=== PATIENT | male | born 1955 | race Caucasian/White ===

== ENCOUNTER 2019-10-31 13:25 | Inpatient (IN) ==
[2019-10-31 14:04] LABS: Hematocrit (blood only) 49.8 % (42-52); Hemoglobin 16.7 g/dL (14.0-18.0); Mean Corpuscular Hemoglobin 32.2 pg (25-34); Mean Corpuscular Hgb Conc 33.5 g/dL (32-36); Mean Platelet Volume 9.3 fL (7.4-10.4); Platelet Count 355 K/uL (130-400); RDW Coefficient of Variation 13.3 % (11.5-14.5); RDW Standard Deviation 46.2 fL (36.4-46.3); Red Blood Count 5.19 M/uL (4.7-6.1); White Blood Count 11.87 K/uL (4.8-10.8)
[2019-10-31 14:08] LABS: Blood Urea Nitrogen 8 mg/dl (7-18); Carbon Dioxide 22 mmol/L (21-32); Chloride 101 mmol/L (98-107); Est GFR (African American) 71.7; Est GFR (Non-African American) 61.8; Potassium 3.9 mmol/L (3.5-5.1); Sodium 135 mmol/L (136-145)
[2019-10-31 14:09] LABS: Alanine Aminotransferase 27 U/L (12-78); Albumin Level 3.6 gm/dl (3.4-5.0); Aspartate Aminotransferase 21 U/L (15-37); BUN Creatinine Ratio 6.8 (10-20); Calcium 9.2 mg/dl (8.5-10.1); Creatinine Clr Calc Pharmacy 85.6 ml/min; Glucose 164 mg/dl (70-99); Magnesium 2.1 mg/dl (1.8-2.4)
[2019-10-31 14:13] LABS: D Dimer 550 ug/L FEU (0-500)
[2019-10-31 14:19] LABS: Albumin Globulin Ratio 0.7 (0.9-2); Alkaline Phosphatase 73 U/L (45-117); Bilirubin,Total 0.6 mg/dl (0.2-1); Creatine Kinase 60 U/L (39-308); Globulin 4.8 gm/dl (2.5-4.0); Total Protein 8.4 gm/dl (6.4-8.2); Troponin I < 0.015 ng/ml (0-0.045)
--- NOTE | 2019-10-31 14:20 | CT Scan Report ---
CT head/brain wo con CLINICAL HISTORY: 64 years-old Male with syncope. Acute syncope TECHNIQUE: Multiple axial CT images of the head were obtained without contrast. A dose lowering tech nique was utilized adhering to the principles of ALARA. CT DOSE: 537.48 mGy.cm COMPARISON: None. FINDINGS: No acute intracranial hemorrhage, midline shift, intracranial mass, hydrocephalus, territorial ischem ia or abnormal extra-axial collection. Mild age-related involutional changes. Minimal scattered white matter hypodensities suggest chronic microvascular ischemic disease. Cerebral vascular calcification s. The calvarium is intact. The paranasal sinuses, mastoid air cells, and middle ear cavities are clear . IMPRESSION: No acute intracranial abnormality or calvarial fracture. ACT 112: Negative or not required by law. The above report was generated using voice recognition software. It may contain grammatical, syntax o r spelling errors. Electronically signed by: Brad Ng M.D. 10/31/2019 2:19 PM
[2019-10-31] MEDS ORDERED: SODIUM CHLORIDE 0.9% 1000ML 1,000 ML IV STA (14:26)
[2019-10-31] MEDS ORDERED: SODIUM CHLORIDE 0.9% 1000ML 500 ML IV ONE (14:26)
--- NOTE | 2019-10-31 14:26 | Emergency Department Note ---
Impression & Plan Syncope, Hypertension ED Provider Note NAME: ALEENA CABRERA AGE: 64 SEX: M ARRIVES VIA: Walk-In INFORMANT: [Patient] ED PROVIDER(S): Ramu Matthew MD CHIEF COMPLAINT: Syncope PLAN: Disposition: Admitted Condition: [Good] MEDICAL DECISION MAKING: Patient presented with a syncopal episode. He was rather abrupt in onset. He notes a mildly productive cough. He is a heavy smoker. The patient had an unremarkable CBC and chemistry panel. His d-dimer was mildly elevated. Chest x-ray was concerning for an abnormal hilum on the right. CT imaging of the chest was performed. This was concerning for possible metastatic spread of a right hilar mass. This is concerning for malignancy. I did discuss this with the patient. There is also some findings concerning for postobstructive changes. The patient had blood cultures done. He was given Rocephin and doxycycline. [facility] The patient was evaluated in the ER for further management. Triage Nursing notes reviewed and agree them. [Additional history obtained from] EMS Vital Signs: reviewed and remarkable for hypertension Differential diagnosis: Vasovagal event, dehydration, infection, hypoglycemia, electrolyte a bnormalities, cardiac sources, intracerebral event, pulmonary embolism, seizure, toxicologic, neurologic, as well as other pathologies. ER treatment provided: Saline hydration Diagnostics interpreted by me: ECG:Rate: 94 Rhythm:Normal sinus [place]:Normal QRS:Normal ST segements:No elevation or depression Other:No PACs or PVCs Cardiac Monitoring: Cardiac monitoring ordered by me: The patient was placed on continuous cardiac monitoring and observed. It revealed a normal sinus rhythm at 98 beats per minute without ectopy or evidence of dysrhythmia. Laboratory studies: [See below] unremarkable CBC and chemistry panel. Negative troponin. Elevated d-dimer. Imaging studies: Chest x-ray abnormal right hilum. CT scan did not reveal any obvious pulmonary emboli. Concerning findings for lung cancer noted. I refer you to the EMR for further details. CT scan of the head was negative for acute process. [facility] Discussed with Lauren rebolledo NP. Patient will be admitted by Dr. Benitez. HPI: The patient is a 64 year old male who presents to the Emergency Room with complaints of syncope. This started prior to arrival and is resolved. The patient also notes the following associated symptoms, none. The patient has been given no medication for relieving factors. Current pain is rated as 0/10. Patient states that he was sitting at the kitchen table. He got up to walk into the next room and had a very abrupt syncopal episode. No prior history of the same. Patient denies any injury. He denies any pain. He felt no palpitations prior to. The patient has not had any sick contacts. He has been self isolating at home. No known fu virus contacts. He has not seen a doctor in several decades. Pt denies headache, fevers, chills, diaphoresis, visual changes, neck pain, chest pain, breathing difficulties, nausea, vomiting, abdominal pain, back pain, melena, hematochezia, urinary symptoms, numbness, weakness, lymphadenopathy, rash, or other complaints. ROS: See above HPI for pertinent positives & negatives. A total of [10] systems reviewed and were otherwise negative. PAST MEDICAL HISTORY:[See Below] patient denies PAST SURGICAL HISTORY:[See Below]patient denies FAMILY HISTORY:[See Below] SOCIAL HISTORY:[See Below] smoker HOME MEDICATIONS:[See Below] ALLERGIES:[See Below] VITALS:[See Below] PHYSICAL EXAMINATION: GENERAL: Awake, alert, well-appearing, in no distress HENT: Normocephalic, atraumatic. Oropharynx unremarkable. EYES: Normal conjunctiva. Sclera non-icteric. NECK: Inspection normal. Non-tender. Supple. No nuchal rigidity. FROM. No masses. RESPIRATORY: Clear to auscultation. No wheezes. No rales. Normal respiratory effort. CARDIAC: Normal rate. Normal rhythm. No murmurs. No rubs. Extremities warm and well perfused. Pulses equal. No JVD. GI: Soft, non-distended. No tenderness to palpation. No rebound or guarding. No masses. RECTAL: Deferred. MUSCULOSKELETAL: Atraumatic. Chest examination reveals no tenderness. The back is symmetrical on inspection without obvious abnormality. There is no CVA tenderness to palpation. No joint edema. LOWER EXTREMITIES: Calves are equal size bilaterally and non-tender. No edema. No discoloration. NEURO: Normal sensorium. No sensory or motor deficits noted. Speech normal. Cranial nerves II through XII intact. SKIN: No rash or jaundice noted. 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 Beliefs That Will Affect Care: None Current Living Situation: Alone Other Information That Helps Us Care for You: No Feels Safe at Home: Yes Safety Concerns: Feels Safe At This Time Smoking Status: Current every day smoker Tobacco Type: cigarettes ; Cigarettes Per Day: 10 ; Do You Dip or Chew Tobacco: No ; Second Hand Exposure: No ; Tobacco Cessation Education Requested by Patient: No Hx Alcohol Use: Yes Alcohol type: beer Alcohol Intake Frequency: Rarely Hx Substance Use: No Allergies Allergies Allergy/AdvReac Type Severity Reaction Status Date / Time No Known Allergies Allergy Unverified 10/31/19 14:54 Home Meds Home Medications Medication Instructions Recorded Confirmed No Known Home Medications 10/31/19 10/31/19 Results & Data (ED) Vital Signs Vital Signs - 24 hr 10/31/19 13:31 10/31/19 13:35 10/31/19 13:36 Temperature 36.7 C Temperature Source Oral Pulse Rate - Lying Pulse Rate - Sitting Pulse Rate - Standing Pulse Rate 95 H 94 H 97 H Pulse Rate from SpO2 Sensor 95 H 95 H Respiratory Rate 20 22 20 Respiratory Effort / Characteristics Non-Labored Spontaneous Respiratory Depth Normal Respiratory Pattern Regular Blood Pressure - Lying Blood Pressure - Sitting Blood Pressure- Standing Blood Pressure 184/99 H 184/99 H Blood Pressure Mean 120 127 Pulse Oximetry 96 96 95 Oxygen Delivery Method Room Air Sepsis Recent Fever Within 48 Hours No Sepsis Action Taken by Nursing No Action Required 10/31/19 14:08 10/31/19 14:09 10/31/19 14:10 Temperature Temperature Source Pulse Rate - Lying 98 H Pulse Rate - Sitting 97 H Pulse Rate - Standing 102 H Pulse Rate 99 H 101 H 103 H Pulse Rate from SpO2 Sensor Respiratory Rate 20 21 Respiratory Effort / Characteristics Respiratory Depth Respiratory Pattern Blood Pressure - Lying 164/115 H Blood Pressure - Sitting 159/80 H Blood Pressure- Standing 148/107 H Blood Pressure 164/115 H 159/80 H Blood Pressure Mean 124 95 Pulse Oximetry Oxygen Delivery Method Sepsis Recent Fever Within 48 Hours Sepsis Action Taken by Nursing 10/31/19 14:11 10/31/19 14:12 10/31/19 14:30 Temperature Temperature Source Pulse Rate - Lying Pulse Rate - Sitting Pulse Rate - Standing Pulse Rate 101 H 97 H Pulse Rate from SpO2 Sensor Respiratory Rate 21 20 Respiratory Effort / Characteristics Respiratory Depth Respiratory Pattern Blood Pressure - Lying Blood Pressure - Sitting Blood Pressure- Standing Blood Pressure 148/107 H 145/81 H Blood Pressure Mean 126 113 Pulse Oximetry Oxygen Delivery Method Sepsis Recent Fever Within 48 Hours Sepsis Action Taken by Nursing 10/31/19 14:42 10/31/19 15:00 10/31/19 15:01 Temperature Temperature Source Pulse Rate - Lying Pulse Rate - Sitting Pulse Rate - Standing Pulse Rate 94 H 86 89 Pulse Rate from SpO2 Sensor 95 H 86 86 Respiratory Rate 20 16 17 Respiratory Effort / Characteristics Respiratory Depth Respiratory Pattern Blood Pressure - Lying Blood Pressure - Sitting Blood Pressure- Standing Blood Pressure 155/81 H Blood Pressure Mean 104 Pulse Oximetry 96 97 95 Oxygen Delivery Method Sepsis Recent Fever Within 48 Hours Sepsis Action Taken by Nursing 10/31/19 15:30 10/31/19 15:31 10/31/19 16:00 Temperature Temperature Source Pulse Rate - Lying Pulse Rate - Sitting Pulse Rate - Standing Pulse Rate 90 92 H 92 H Pulse Rate from SpO2 Sensor 91 H 89 101 H Respiratory Rate 20 19 Respiratory Effort / Characteristics Respiratory Depth Respiratory Pattern Blood Pressure - Lying Blood Pressure - Sitting Blood Pressure- Standing Blood Pressure 124/90 Blood Pressure Mean 107 Pulse Oximetry 97 94 92 Oxygen Delivery Method Sepsis Recent Fever Within 48 Hours Sepsis Action Taken by Nursing 10/31/19 16:01 10/31/19 16:30 Temperature Temperature Source Pulse Rate - Lying Pulse Rate - Sitting Pulse Rate - Standing Pulse Rate 96 H 91 H Pulse Rate from SpO2 Sensor 97 H 92 H Respiratory Rate 18 20 Respiratory Effort / Characteristics Respiratory Depth Respiratory Pattern Blood Pressure - Lying Blood Pressure - Sitting Blood Pressure- Standing Blood Pressure 196/93 H 172/107 H Blood Pressure Mean 132 131 Pulse Oximetry 93 97 Oxygen Delivery Method Sepsis Recent Fever Within 48 Hours Sepsis Action Taken by Nursing Laboratory Data Result diagrams: 10/31/19 13:02 10/31/19 13:02 Lab Results 10/31/19 10/31/19 10/31/19 Range/Units 13:02 13:02 13:02 WBC 11.87 H (4.8-10.8) K/uL RBC 5.19 (4.7-6.1) M/uL Hgb 16.7 (14.0-18.0) g/dL Hct 49.8 (42-52) % MCV 96.0 (80-100) fL MCH 32.2 (25-34) pg MCHC 33.5 (32-36) g/dL RDW Std Deviation 46.2 (36.4-46.3) fL RDW Coeff of [place] 13.3 (11.5-14.5) % Plt Count 355 (130-400) K/uL MPV 9.3 (7.4-10.4) fL Immature Gran % (Auto) 0.3 % Neut % (Auto) 40.8 % Lymph % (Auto) 44.4 % [place] % (Auto) 9.6 % Eos % (Auto) 4.2 % Baso % (Auto) 0.7 % Immature Gran # (Auto) 0.03 H (0.00-0.02) K/uL Neut # (Auto) 4.85 (1.4-6.5) K/uL Lymph # (Auto) 5.27 H (1.2-3.4) K/uL [place] # (Auto) 1.14 H (0.11-0.59) K/uL Eos # (Auto) 0.50 (0-0.5) K/uL Baso # (Auto) 0.08 (0-0.2) K/uL RBC Morphology Unremarkable D-Dimer 550 H* (0-500) ug/L FEU Sodium 135 L (136-145) mmol/L Potassium 3.9 (3.5-5.1) mmol/L Chloride 101 (98-107) mmol/L Carbon Dioxide 22 (21-32) mmol/L Anion Gap 12.0 H (3-11) BUN 8 (7-18) mg/dl Creatinine 1.22 (0.6-1.4) mg/dl Est Cr Clr Drug Dosing 85.6 ml/min Est GFR ( Amer) 71.7 Est GFR (Non-Af Amer) 61.8 BUN/Creatinine Ratio 6.8 L (10-20) Glucose 164 H (70-99) mg/dl Calcium 9.2 (8.5-10.1) mg/dl Magnesium 2.1 (1.8-2.4) mg/dl Total Bilirubin 0.6 (0.2-1) mg/dl AST 21 (15-37) U/L ALT 27 (12-78) U/L Alkaline Phosphatase 73 (45-117) U/L Total Creatine Kinase 60 (39-308) U/L Troponin I < 0.015 (0-0.045) ng/ml Total Protein 8.4 H (6.4-8.2) gm/dl Albumin 3.6 (3.4-5.0) gm/dl Globulin 4.8 H (2.5-4.0) gm/dl Albumin/Globulin Ratio 0.7 L (0.9-2) TSH 3.720 (0.300-4.500) uIu/ml Administered Medications Sodium Chloride (Nss 1000ml) 1,000 mls @ 125 mls/hr IV .Q8H STA Stop: 10/31/19 22:25 Last Infusion: 10/31/19 20:09 Dose: 0 mls/hr Documented by: [id number] Admin: 10/31/19 14:45 Dose: 125 mls/hr Documented by: [id number] Discontinued Medications Sodium Chloride (Nss 1000ml) 500 mls @ 999 mls/hr IV .Q31M ONE Stop: 10/31/19 14:56 Last Infusion: 10/31/19 15:40 Dose: 0 mls/hr Documented by: [id number] Admin: 10/31/19 14:45 Dose: 999 mls/hr Documented by: [id number] Ceftriaxone Sodium (Rocephin) 2,000 mg in 70 mls @ 140 mls/hr IV NOW STA Stop: 10/31/19 16:15 Last Infusion: 10/31/19 17:15 Dose: 0 mls/hr Documented by: [id number] Admin: 10/31/19 16:28 Dose: 140 mls/hr Documented by: [id number] Doxycycline Hyclate 100 mg/ (Dextrose) 110 mls @ 50 mls/hr IV NOW STA Stop: 10/31/19 17:57 Last Infusion: 10/31/19 20:08 Dose: 0 mls/hr Documented by: [id number] Admin: 10/31/19 17:15 Dose: 50 mls/hr Documented by: [id number] Ioversol (Optiray 320 125ml) 120 ml IV ONCE PRN PRN Reason: Interaction Checking Stop: 11/04/19 14:35 Last Admin: 10/31/19 14:38 Dose: 120 ml Documented by: [id number] Discharge Plan Visit Data *Final* Discharge Date/Time: 10/31/19 17:03 Chief Complaint: Syncope Stated Complaint: ALOC ED Provider: Ramu Matthew Discharge Problem: Syncope, Hypertension Patient Disposition: Admitted As Inpatient Discharge Instructions Interventions: ED Discharge Assessment Last Done: 10/31/19 17:03
[2019-10-31 14:35] LABS: Basophils # (auto) 0.08 K/uL (0-0.2); Basophils % (auto) 0.7 %; Eosinophils % (auto) 4.2 %; Immature Granulocytes # (auto) 0.03 K/uL (0.00-0.02); Immature Granulocytes % (auto) 0.3 %; Lymphocytes # (auto) 5.27 K/uL (1.2-3.4); Lymphocytes % (auto) 44.4 %; Monocytes # (auto) 1.14 K/uL (0.11-0.59); Monocytes % (auto) 9.6 %; Neutrophils # (auto) 4.85 K/uL (1.4-6.5); Neutrophils % (auto) 40.8 %; RBC Morphology Unremarkable
[2019-10-31] MEDS ORDERED: OPTIRAY 320 125ml IV PRN (14:36)
--- NOTE | 2019-10-31 15:07 | XRay Report ---
XR chest 1V portable HISTORY: syncope COMPARISON: None. FINDINGS: No pneumothorax. No pleural effusion. The heart is normal in size. The left lung is clear. Abnormal fullness and increased density within the right hilum. Small patchy density within the perip geraldo the right lung base. IMPRESSION: 1. Increased density and abnormal fullness within the right hilum. This could represent a right hilar mass. Dedicated CT is recommended for further evaluation. 2. Small patchy density within the base of the right lower lobe which may represent atelectasis or pn eumonia. ACT 112: Negative or not required by law. Electronically signed by: Lino Richey M.D. 10/31/2019 3:06 PM
--- NOTE | 2019-10-31 15:08 | CT Scan Report ---
CT angio chest PE protocol CT DOSE: 741.03 mGy.cm HISTORY: 64 years-old Male with syncope, +dimer. Acute syncope with elevated d-dimer level TECHNIQUE: Multiple CTA images of the chest were obtained after the intravenous administration of 120 ml Optiray 320. Coronal and sagittal MIPS were obtained from the axial data set and were submitted for review. All measurements were obtained according to NASCET criteria. A dose lowering technique w as utilized adhering to the principles of ALARA. COMPARISON: Chest radiograph of same day FINDINGS: CTA: Heart is normal in size. There is no pericardial effusion. Moderate coronary artery calcifications. N o thoracic aortic aneurysm or dissection. Moderate to extensive calcified plaque of the thoracic aort a. Patency of the imaged great vessels. The pulmonary arterial tree is suboptimally evaluated seconda ry to contrast bolus timing and respiratory motion. No definite pulmonary emboli identified. There is narrowing of the distal right pulmonary artery and proximal lobar branches secondary to a right jessica r mass/adenopathy as described below. There is decreased opacification of the subsegmental branches o f the right lung compared the left is likely secondary to shunting. CT CHEST: Unremarkable thyroid. There are multiple enlarged paratracheal, prevascular, subcarinal and right hil ar lymph nodes. A right tracheoesophageal recess lymph node on image 245 measures 2.5 x 1.7 cm. Subca rinal adenopathy measures up to 2.9 x 1.8 cm. Right hilar mass/conglomerate pathologic adenopathy whi ch is confluent with the subcarinal adenopathy measures approximately 5.8 x 5.4 x 4.7 cm in transvers e, AP and craniocaudal dimensions respectively. There is encasement of the pulmonary arteries and vei ns with encasement of the bronchus intermedius, right lower lobe bronchus and tracks along the lobar and segmental branches of the right middle and lower lobes. There is mild narrowing of the bronchus i ntermedius. Scattered nodular consolidative opacities are noted within a bronchovascular distribution within the right middle and lower lobes with individual nodules measuring up to approximately 6 mm. Mild emphysema. There is an irregular 1.9 x 1.6 cm calcified structure of the subpleural left lower l obe on image 135 series 4. Mild bilateral bronchial wall thickening. Respiratory motion artifact limi ts evaluation of the lung parenchyma. Mild nonspecific thickening of the bilateral adrenal glands. Hepatic steatosis. Gynecomastia. Degener ative changes of the shoulders and spine. No suspicious osseous lesions. IMPRESSION: 1. Limited exam secondary to respiratory motion. 2. Infiltrative right hilar mass measures 5.8 x 5.4 x 4.7 cm suggestive of primary bronchogenic carci noma and encases the adjacent pulmonary arteries and veins, bronchus intermedius and proximal lobar a nd segmental bronchi of the right middle and lower lobes. Adjacent subsegmental consolidative and nod ular opacities of the right lower and middle lobes suggest postobstructive pneumonitis with satellite metastasis also in the differential. 3. 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 4. No evidence of pulmonary thromboembolic disease. 5. Mild emphysema. 6. Hepatic steatosis. ACT 112: Negative or not required by law. The above report was generated using voice recognition software. It may contain grammatical, syntax o r spelling errors. Electronically signed by: Brad Ng M.D. 10/31/2019 3:07 PM
--- NOTE | 2019-10-31 15:36 | Electrocardiogram Report ---
Test Reason : Blood Pressure : / mmHG Vent. Rate : 094 BPM Atrial Rate : 094 BPM P-R Int : 138 ms QRS Dur : 086 ms QT Int : 368 ms P-R-T Axes : 064 039 051 degrees QTc Int : 460 ms Normal sinus rhythm Normal ECG No previous ECGs available Confirmed by Cali Castañeda ([id number]) on 10/31/2019 3:35:57 PM Referred By: Confirmed By:Cali Castañeda
[2019-10-31] MEDS ORDERED: DOXYCYCLINE HYCLATE 100 MG in DEXTROSE 5% 100 ML IV STA (15:46)
[2019-10-31] MEDS ORDERED: cefTRIAXone SODIUM 2,000 MG/70 ML BAG IV STA (15:46)
--- NOTE | 2019-10-31 17:12 | History & Physical Report ---
Date of Service October 31, 2019 Assessment & Plan (1) Syncope: -Admit to telemetry -Patient presenting from home after a syncopal event -In the ED, vitals are stable and head CT is negative for acute findings. Chest CTA negative for PE however does show right lung mass which will be described b danielow. -Initial troponin negative, EKG without acute ST changes -Continue to cycle cardiac enzymes, check resting echo -Orthostatic BPs (2) Mass of right lung: (3) Pneumonia: -CTA chest showing infiltrative right hilar mass measures 5.8 x 5.4 x 4.7 cm suggestive of primary bronchogenic carcinoma and encases the adjacent pulmonary arteries and veins, bronchus intermedius and proximal lobar and segmental bronchi of the right middle and lower lobes. Adjacent subsegmental consolidative and nodular opacities of the right lower and middle lobes suggest postobstructive pneumonitis with satellite metastasis also in the differential. -Saturating well on room air -Afebrile, WBC 11.8K -S/p IV ceftriaxone and doxycycline in the ED, will continue with -Pulmonary consult, case discussed with Dr. Freedman (4) Elevated blood pressure, situational: -Intermittently elevated BP readings in the ED, likely situational -Continue to monitor BP, providing antihypertensive if needed (5) DVT prophylaxis: -SCDs due to lung mass involving pulmonary arteries and veins /possible n eed for invasive procedure History of Present Illness Chief Complaint: Syncope Primary Care Provider: NO PCP 64-year-old male with no significant past medical history (has not seen a healthcare provider in ~50 years) who presents to the ED after syncopal event. Patient reports he was walking through his house to check on his wood burner when he noted that his eyes were tracing up the wall and then to the ceiling. He then subsequently fell to the floor losing consciousness. No associated tongue biting, vomiting, loss of bowel or bladder function. Patient was brought to the ED via EMS for further evaluation. Patient denies any associated chest pain or shortness of breath. Reports he otherwise has been feeling well recently. Patient reports a chronic cough that is productive for yellow sputum at times. Patient is a lifelong smoker. Denies fevers and chills. No abdominal pain, nausea, diarrhea. Denies any urinary symptoms. In the ED, patient is mildly hypertensive at times, otherwise hemodynamically stable. Labs are unremarkable. Head CT is negative for acute findings. CTA chest negative for PE however shows infiltrative right hilar mass measures 5.8 x 5.4 x 4.7 cm suggestive of primary bronchogenic carcinoma and encases the adjacent pulmonary arteries and veins, bronchus intermedius and proximal lobar and segmental bronchi of the right middle and lower lobes. Adjacent subsegmental consolidative and nodular opacities of the right lower and middle lobes suggest postobstructive pneumonitis with satellite metastasis also in the differential. Patient was given IV ceftriaxone, IV doxycycline, IVF. Allergies Allergy/AdvReac Type Severity Reaction Status Date / Time No Known Allergies Allergy Unverified 10/31/19 14:54 Home Medications Home Medications Medication Instructions Recorded Confirmed Type No Known Home Medications 10/31/19 10/31/19 History Past Med/Surg History Medical History No significant past medical history Surgical History No significant past surgical history Family History Mother Leukemia Father Heart disease Stroke Social History Preferred Language: Icelandic Feels Safe at Home: Yes Smoking Status: Current every day smoker Hx Alcohol Use: Yes Alcohol Intake Frequency: Rarely Review of Systems Review of Systems: ROS per HPI, all other systems reviewed and negative Physical Exam Constitutional: WD/WN, vitals as above Eyes: PERRL, conjunctivae normal, anicteric sclerae ENMT: external ear and nose normal, oropharynx normal Respiratory: normal respiratory effort; no respiratory distress Auscultation: + diminished lung sounds and + wheezes (Faint, expiratory, right base) Cardiovascular: Rate/Rhythm: regular rate and regular rhythm Vessels: normal peripheral pulses Extremities: + edema (Trace edema BLE) Gastrointestinal (Abdomen): normal bowel sounds, soft, nontender, no hepatosplenomegaly Inspection/Auscultation: + abdomen distended Musculoskeletal: no cyanosis or clubbing, extremities motor strength 5/5 Skin: no rashes, warm and dry Scattered areas of psoriasis Neurologic: PERRL, EOMI, accommodation nl, no face palsy, no dysarthria Psychiatric: A+Ox3, euthymic affect Results & Data Results & Data ([facility]) Vital Signs (Past 12 Hours) Vital Signs Temp Pulse Resp BP Pulse Ox 10/31/19 15:01 89 17 95 10/31/19 15:00 86 16 155/81 H 97 10/31/19 14:42 94 H 20 96 10/31/19 14:30 145/81 H 10/31/19 14:12 97 H 20 10/31/19 14:11 101 H 21 148/107 H 10/31/19 14:10 103 H 21 159/80 H 10/31/19 14:09 101 H 20 164/115 H 10/31/19 14:08 99 H 10/31/19 13:36 36.7 C 97 H 20 184/99 H 95 10/31/19 13:35 94 H 22 96 10/31/19 13:31 95 H 20 184/99 H 96 Laboratory Results Short CBC 10/31/19 Range/Units 13:02 WBC 11.87 H (4.8-10.8) K/uL Hgb 16.7 (14.0-18.0) g/dL Hct 49.8 (42-52) % Plt Count 355 (130-400) K/uL BMP 10/31/19 13:02 Sodium 135 L Potassium 3.9 Chloride 101 Carbon Dioxide 22 BUN 8 Creatinine 1.22 Glucose 164 H Calcium 9.2 Cardiac Enzymes 10/31/19 Range/Units 13:02 Total Creatine Kinase 60 (39-308) U/L Troponin I < 0.015 (0-0.045) ng/ml Liver Function 10/31/19 Range/Units 13:02 Total Bilirubin 0.6 (0.2-1) mg/dl AST 21 (15-37) U/L ALT 27 (12-78) U/L Alkaline Phosphatase 73 (45-117) U/L Albumin 3.6 (3.4-5.0) gm/dl Diagnostic Findings CXR IMPRESSION: 1. Increased density and abnormal fullness within the right hilum. This could represent a right hilar mass. Dedicated CT is recommended for further evaluation. 2. Small patchy density within the base of the right lower lobe which may represent atelectasis or pneumonia. HEAD CT IMPRESSION: No acute intracranial abnormality or calvarial fracture. CTA CHEST IMPRESSION: 1. Limited exam secondary to respiratory motion. 2. Infiltrative right hilar mass measures 5.8 x 5.4 x 4.7 cm suggestive of primary bronchogenic carcinoma and encases the adjacent pulmonary arteries and veins, bronchus intermedius and proximal lobar and segmental bronchi of the right middle and lower lobes. Adjacent subsegmental consolidative and nodular opacities of the right lower and middle lobes suggest postobstructive pneumonitis with satellite metastasis also in the differential. 3. Pathologic prevascular, paratracheal, right hilar and subcarinal adenopathy compatible with lymphatic metastasis. 4. No evidence of pulmonary thromboembolic disease. 5. Mild emphysema. 6. Hepatic steatosis. Code Status & VTE Plan Code Status Patient is a full code as per my discussion with him. VTE Prophylaxis Plan VTE Prophylaxis will be ordered: Yes Supervising Physician Co-Signing Physician Notes Physical Exam Gen-AAO x 3, NAD, Afebrile Head-NCAT, EOMI, PERRLA, Anicteric Sclera, No Posterior Pharyngeal Erythema Neck-Supple, No JVD, No Thyromegaly, No Masses, No LAD, No Bruits Lungs-Clear to Auscultation Bilaterally, No Rales, No Rhonchi, No Wheezing, No Crepitus Chest-No S4, +S1, +S2, No S3, No Murmurs, No Rubs, No Gallops, No Ectopy Abdomen-Soft, Bowel Sounds Present, Non Tender, Non Distended, No Hepatomegaly, No Splenomegaly, No Palpable Masses, No Rebound, No Rigidity, No Guarding Musculoskeletal-Full Range of Motion Bilaterally, No CVAT Extremities-No Cyanosis, No Clubbing, No Edema Nuero-Cranial Nerves II-XII grossly intact, Motor WNL, DTRs WNL, Strength WNL, Non Focal Psych-Normal Mood
[2019-10-31] MEDS ORDERED: ACETAMINOPHEN 325 MG TAB PO PRN (17:25)
[2019-10-31 18:28] LABS: Appearance Urine Clear (Clear); Bacteria Urine Automated Negative (Negative); Bilirubin Urine Negative (Negative); Blood Urine Trace (Negative); Color Urine Yellow; Epithelial Cell Urine Auto >30 /lpf (0-5); Glucose Urine UA Negative (Negative); Ketones Urine Negative (Negative); Leukocyte Esterase Urine 1+ (Negative); Nitrite Urine Negative (Negative); Protein Urine Negative (Negative); Specific Gravity Urine > 1.045 (1.000-1.030); Urobilinogen Urine Negative (Negative)
[2019-11-01 01:38] LABS: Hematocrit (blood only) 43.6 % (42-52); Hemoglobin 14.5 g/dL (14.0-18.0); Mean Corpuscular Hemoglobin 31.3 pg (25-34); Mean Corpuscular Hgb Conc 33.3 g/dL (32-36); Mean Corpuscular Volume 94.2 fL (80-100); Mean Platelet Volume 8.7 fL (7.4-10.4); Platelet Count 308 K/uL (130-400); RDW Coefficient of Variation 13.2 % (11.5-14.5); RDW Standard Deviation 45.5 fL (36.4-46.3); Red Blood Count 4.63 M/uL (4.7-6.1); White Blood Count 9.49 K/uL (4.8-10.8)
[2019-11-01 02:04] LABS: BUN Creatinine Ratio 11.1 (10-20); Calcium 8.2 mg/dl (8.5-10.1); Creatinine Clr Calc Pharmacy 76.9 ml/min; Est GFR (African American) 80.3; Est GFR (Non-African American) 69.3; Potassium 4.5 mmol/L (3.5-5.1)
[2019-11-01] MEDS: DOXYCYCLINE HYCLATE 100 MG in DEXTROSE 5% 100 ML IV SCH ×2 (05:14→17:31)
--- NOTE | 2019-11-01 07:32 | Hospitalist Progress Note ---
Date of Service November 01, 2019 Assessment & Plan (1) Syncope: -Patient presenting from home after a syncopal event -In the ED, vitals are stable and head CT is negative for acute findings. Chest CTA negative for PE however does show right lung mass. -Initial troponin negative, EKG without acute ST changes -Continue to cycle cardiac enzymes, check resting echo -Orthostatic BPs (2) Mass of right lung: (3) Pneumonia: -CTA chest showing infiltrative right hilar mass measures 5.8 x 5.4 x 4.7 cm suggestive of primary bronchogenic carcinoma and encases the adjacent pulmonary arteries and veins, bronchus intermedius and proximal lobar and segmental bronchi of the right middle and lower lobes. Adjacent subsegmental consolidative and nodular opacities of the right lower and middle lobes suggest postobstructive pneumonitis with satellite metastasis also in the differential. -Saturating well on room air -Afebrile, WBC 11.8K -S/p IV ceftriaxone and doxycycline in the ED, will continue with -Pulmonary consult, case discussed with Dr. Freedman (4) Elevated blood pressure, situational: -Intermittently elevated BP readings in the ED, likely situational -Continue to monitor BP, providing antihypertensive if needed (5) DVT prophylaxis: -SCDs due to lung mass involving pulmonary arteries and veins /possible need for invasive procedure Labs Checked ROS-No Headache, No Visual Changes, No Nausea, No Vomiting, No Fever, No Chills, No Neck Pain or Stiffness, No Chest Pain, No Palpitations, No SOB, No FISHMAN, No Cough, No Sputum, No Wheezing, No Abdominal Pain, No Diarrhea, No Hematemesis, No Hemoptysis, No Unexpected Weight Loss, No Flank pain, No Melena, No Hematochezia, No Frequency, No Urgency, No Burning, No Hematuria, No Rashes, No Diaphoresis. Appetite is Normal Physical Exam Gen-AAO x 3, NAD, Afebrile Head-NCAT, EOMI, PERRLA, Anicteric Sclera, No Posterior Pharyngeal Erythema Neck-Supple, No JVD, No Thyromegaly, No Masses, No LAD, No Bruits Lungs-Clear to Auscultation Bilaterally, No Rales, No Rhonchi, No Wheezing, No Crepitus Chest-No S4, +S1, +S2, No S3, No Murmurs, No Rubs, No Gallops, No Ectopy Abdomen-Soft, Bowel Sounds Present, Non Tender, Non Distended, No Hepatomegaly, No Splenomegaly, No Palpable Masses, No Rebound, No Rigidity, No Guarding Musculoskeletal-Full Range of Motion Bilaterally, No CVAT Extremities-No Cyanosis, No Clubbing, No Edema Nuero-Cranial Nerves II-XII grossly intact, Motor WNL, DTRs WNL, Strength WNL, Non Focal Psych-Normal Mood Admission and Anticipated Discharge Date Admission Date: October 31, 2019 Anticipated date of discharge: 11/02/19 Results & Data Results & Data ([facility]) Vital Signs (Past 12 Hours) Vital Signs Temp Pulse Resp BP Pulse Ox 11/01/19 04:00 36.7 C 95 H 18 114/88 95 10/31/19 23:53 37.2 C 87 18 130/71 91 10/31/19 19:35 37.1 C 84 18 163/77 H 94
--- NOTE | 2019-11-01 11:48 | Pulmonary Consultation ---
Date of Consultation November 01, 2019 Assessment & Plan (1) Mass of right lung: CT chest personally reviewed: Emphysematous changes appreciated. There is significant right hilar mass with significant mediastinal lymphadenopathy involving station 7, 4R and 2R. Patient also has granulomatous change appreciated in the left lower lobe. --Right hilar mass with mediastinal lymphadenopathy In a patient with greater than [id number] smoking history, the likelihood of malignancy is very high Patient denies any B symptoms Plan would be for bronchoscopy with EBUS to get tissue diagnosis. We will get MRI of the head to make sure there is no metastatic disease appreci ated there. Patient will need a PET/CT as an outpatient. We will schedule the EBUS to be done Sunday. N.p.o. post Sunday midnight. Risk and benefits of the procedure explained to the patient in depth. All questions and queries were answered and the best way possible. --COPD/emphysema We will start the patient on Anoro Patient is to follow-up with pulmonary as an outpatient to have pulmonary function test done --Active smoker Advised to quit Plan: MRI of the brain to rule out mets especially given patient had new onset syncope with questionable seizure-like activity. CT head was negative on the day of presentation. EBUS on Sunday. Recommend discontinuing antibiotics Start Anoro inhaler. Please note the above document was generated using voice recognition software. It may contain grammatical, syntax or spelling errors. (2) LAD (lymphadenopathy), mediastinal: (3) Mass of hilum: History of Present Illness Attending Physician: Dharmesh Benitez DO History of Present Illness 64-year-old male with past medical history of psoriasis not on any treatment presented to the hospital with an episode of syncope which was associated with urinary incontinence as per the patient along with shaking. Patient denies any dizziness, palpitation or diaphoresis prior to the episode. No tongue biting, no fecal incontinence. Patient never had any issues like this in the past. There is no personal or family history of seizure disorder. Pulmonary consult was placed when CTA was done to rule out PE which showed right hilar mass and significant mediastinal lymphadenopathy. Patient denies any shortness of breath, denies any chest pain, no weight loss, no night sweats. Patient does have cough which is usually in the morning with clear phlegm. Denies any hemoptysis. Denies any fever or chills. No dysuria, no diarrhea. Patient denies any headache, no blurry vision, no dizziness, no nausea or vomiting. Good appetite. No recent travel history. Social history: Greater than [id number] active smoker, denies any illicit drug use, social alcohol. 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 No dogs. No birds. Does not stay on a farm. Family history significant for breast cancer in mother and pancreatic cancer in sister. There is no family history of lung cancer. Allergies Allergy/AdvReac Type Severity Reaction Status Date / Time No Known Allergies Allergy Unverified 10/31/19 14:54 Home Medications Home Medications Medication Instructions Recorded Confirmed Type No Known Home Medications 10/31/19 10/31/19 History Patient History Medical History No significant past medical history Surgical History No significant past surgical history Family History Mother Leukemia Father Heart disease Stroke Social History Preferred Language: Greenlandic Communication Ability: Effective Food Scientist Required: No Beliefs That Will Affect Care: None Current Living Situation: Alone Other Information That Helps Us Care for You: No Feels Safe at Home: Yes Safety Concerns: Feels Safe At This Time Smoking Status: Current every day smoker Tobacco Type: cigarettes ; Cigarettes Per Day: 10 ; Do You Dip or Chew Tobacco: No ; Second Hand Exposure: No ; Tobacco Cessation Education Requested by Patient: No Hx Alcohol Use: Yes Alcohol type: beer Alcohol Intake Frequency: Rarely Hx Substance Use: No Review of Systems Review of Systems: All systems reviewed & are unremarkable except as noted in HPI & below Physical Exam Physical Exam: Constitutional: No acute distress HEENT: EOMI, PERRLA, moist mucous membranes, Mallampati 3 Respiratory system: Decreased air entry bilaterally, no crackles, no rhonchi, mild expiratory wheeze bilaterally CVS: S1-S2 positive, no murmurs or gallops Abdomen: Soft, nontender, nondistended, positive bowel sounds x4 Extremities: +2 pulses bilaterally radialis/ dorsalis pedis, no cyanosis, no edema, no clubbing Neuro: Awake alert oriented x3 Psych: Normal mood and affect G/U: No Valentin Skin: no rashes, warm and dry Lymphatic: no cervical or axillary lymphadenopathy Results & Data Results & Data ([facility]) Vital Signs (Past 12 Hours) Vital Signs Temp Pulse Resp BP Pulse Ox 11/01/19 04:00 36.7 C 95 H 18 114/88 95 10/31/19 23:53 37.2 C 87 18 130/71 91 11/01/19 01:23 11/01/19 01:23 PG Care Time/CCT Total # of Minutes Spent Total Time Spent with Patient: Total time spent is greater than 50% in coordination of care (as documented) at patient's floor/unit and/or counseling patient: [place] [address] Initial Inpt Care Lvl 3 Patient Type New Diagnoses Mass of right lung R91.8 LAD (lymphadenopathy), mediastinal R59.0 Mass of hilum R91.8
[2019-11-01] MEDS: UMECLIDINIUM/VILANTEROL 62.5/25MCG 7 PUFFS/INHALER INH SCH (13:14)
[2019-11-01] MEDS ORDERED: GADOBUTROL 30ML VIAL IV PRN (13:46)
--- NOTE | 2019-11-01 14:13 | Magnetic Resonance Report ---
MRI OF THE BRAIN WITHOUT AND WITH IV CONTRAST CLINICAL HISTORY: Syncope. LUNG MASS. EVALUATE FOR METASTATIC DISEASE. COMPARISON STUDY: Noncontrast head CT dated 10/31/2019 TECHNIQUE: MRI of the brain was performed from the vertex to the skull base utilizing various T1 and T2 weighted sequences. Following the IV administration of 5.5 mL of Gadavist contrast, additional enh anced images were obtained. FINDINGS: Sagittal T1, axial diffusion, proton density and T2 weighted axial, coronal FLAIR, and pre and post a xial T1-weighted images were acquired. These were supplemented with post gadolinium coronal T1 weight ed images. No intra or extra-axial mass lesions are visualized. Axial diffusion-weighted images reveal no evidence of acute or subacute infarction. There is no evidence of ventricular dilatation. Proton density T2-weighted and FLAIR images reveal scattered foci of increased T2 signal within the w josi matter, likely on a small vessel basis. There are no abnormal flow voids. There is no evidence of pathologic enhancement. IMPRESSION: 1. No acute intracranial findings 2. No evidence of acute or subacute infarction 3. No evidence of intracranial metastasis ACT 112: Negative or not required by law. Electronically signed by: Jose Red M.D. 11/01/2019 2:11 PM
[2019-11-01] MEDS: cefTRIAXone SODIUM 2,000 MG in DEXTROSE 5% 50 ML IV SCH (16:43)
[2019-11-01] MEDS: ALPRAZolam 0.25 MG TABLET PO PRN (17:31)
[2019-11-02] MEDS: DOXYCYCLINE HYCLATE 100 MG in DEXTROSE 5% 100 ML IV SCH ×2 (05:59→17:02)
[2019-11-02 06:45] LABS: Hematocrit (blood only) 46.7 % (42-52); Hemoglobin 15.7 g/dL (14.0-18.0); Mean Corpuscular Hgb Conc 33.6 g/dL (32-36); Mean Corpuscular Volume 95.1 fL (80-100); Mean Platelet Volume 8.9 fL (7.4-10.4); Platelet Count 325 K/uL (130-400); RDW Coefficient of Variation 13.3 % (11.5-14.5); RDW Standard Deviation 46.2 fL (36.4-46.3); Red Blood Count 4.91 M/uL (4.7-6.1); White Blood Count 10.46 K/uL (4.8-10.8)
--- NOTE | 2019-11-02 07:05 | Hospitalist Progress Note ---
Date of Service November 02, 2019 Assessment & Plan (1) Syncope: -Patient presenting from home after a syncopal event -In the ED, vitals are stable and head CT is negative for acute findings. Chest CTA negative for PE however does show right lung mass. -Initial troponin negative, EKG without acute ST changes -Orthostatic BPs -Bronch Thursday 11/02 (2) Mass of right lung: (3) Pneumonia: -CTA chest showing infiltrative right hilar mass measures 5.8 x 5.4 x 4.7 cm suggestive of primary bronchogenic carcinoma and encases the adjacent pulmonary arteries and veins, bronchus intermedius and proximal lobar and segmental bronchi of the right middle and lower lobes. Adjacent subsegmental consolidative and nodular opacities of the right lower and middle lobes suggest postobstructive pneumonitis with satellite metastasis also in the differential. -Saturating well on room air -Afebrile, WBC 11.8K -IV ceftriaxone and doxycycline -Pulmonary Dr. Freedman (4) Elevated blood pressure, situational: -Intermittently elevated BP readings in the ED, likely situational -Continue to monitor BP, providing antihypertensive if needed (5) DVT prophylaxis: -SCDs due to lung mass involving pulmonary arteries and veins /possible need for invasive procedure Labs Checked ROS-No Headache, No Visual Changes, No Nausea, No Vomiting, No Fever, No Chills, No Neck Pain or Stiffness, No Chest Pain, No Palpitations, No SOB, No FISHMAN, No Cough, No Sputum, No Wheezing, No Abdominal Pain, No Diarrhea, No Hematemesis, No Hemoptysis, No Unexpected Weight Loss, No Flank pain, No Melena, No Hematochezia, No Frequency, No Urgency, No Burning, No Hematuria, No Rashes, No Diaphoresis. Appetite is Normal Physical Exam Gen-AAO x 3, NAD, Afebrile Head-NCAT, EOMI, PERRLA, Anicteric Sclera, No Posterior Pharyngeal Erythema Neck-Supple, No JVD, No Thyromegaly, No Masses, No LAD, No Bruits Lungs-Clear to Auscultation Bilaterally, No Rales, No Rhonchi, No Wheezing, No Crepitus Chest-No S4, +S1, +S2, No S3, No Murmurs, No Rubs, No Gallops, No Ectopy Abdomen-Soft, Bowel Sounds Present, Non Tender, Non Distended, No Hepatomegaly, No Splenomegaly, No Palpable Masses, No Rebound, No Rigidity, No Guarding Musculoskeletal-Full Range of Motion Bilaterally, No CVAT Extremities-No Cyanosis, No Clubbing, No Edema Nuero-Cranial Nerves II-XII grossly intact, Motor WNL, DTRs WNL, Strength WNL, Non Focal Psych-Normal Mood Admission and Anticipated Discharge Date Admission Date: October 31, 2019 Anticipated date of discharge: 11/02/19 Results & Data Results & Data ([facility]) Vital Signs (Past 12 Hours) Vital Signs Temp Pulse Pulse Resp BP Pulse Ox 11/02/19 04:16 36.5 C 84 18 150/75 H 95 11/02/19 01:30 37.1 C 81 89 18 157/85 H 93 11/02/19 00:00 75 11/01/19 23:18 37.1 C 80 16 168/86 H 95
[2019-11-02 07:14] LABS: BUN Creatinine Ratio 12.2 (10-20); Calcium 8.6 mg/dl (8.5-10.1); Creatinine Clr Calc Pharmacy 84.1 ml/min; Est GFR (Non-African American) 77.7; Potassium 4.4 mmol/L (3.5-5.1)
[2019-11-02] MEDS: UMECLIDINIUM/VILANTEROL 62.5/25MCG 7 PUFFS/INHALER INH SCH (08:25)
--- NOTE | 2019-11-02 08:54 | Electrocardiogram Report ---
Test Reason : Blood Pressure : / mmHG Vent. Rate : 080 BPM Atrial Rate : 080 BPM P-R Int : 134 ms QRS Dur : 084 ms QT Int : 366 ms P-R-T Axes : 072 056 059 degrees QTc Int : 422 ms Poor data quality, interpretation may be adversely affected Normal sinus rhythm Normal ECG When compared with ECG of 31-OCT-2019 13:35, No significant change was found Confirmed by Austin Ayala ([id number]) on 11/02/2019 8:54:18 AM Referred By: REFERRED SELF Confirmed By:Austin Ayala
--- NOTE | 2019-11-02 09:52 | Electrocardiogram Report ---
Test Reason : Blood Pressure : / mmHG Vent. Rate : 081 BPM Atrial Rate : 081 BPM P-R Int : 136 ms QRS Dur : 082 ms QT Int : 378 ms P-R-T Axes : 073 062 086 degrees QTc Int : 439 ms Normal sinus rhythm Normal ECG When compared with ECG of 01-NOV-2019 06:46, (unconfirmed) No significant change was found Confirmed by Austin Ayala ([id number]) on 11/02/2019 9:52:14 AM Referred By: REFERRED SELF Confirmed By:Austin Ayala
[2019-11-02] MEDS ORDERED: IOVERSOL 100ml IV PRN (10:41)
--- NOTE | 2019-11-02 11:06 | CT Scan Report ---
ABDOMEN AND PELVIS CT WITH IV AND ORAL CONTRAST CT DOSE: 1155.40 mGy.cm HISTORY: Right hilar mass. Evaluate for metastatic disease. TECHNIQUE: Multiaxial CT images of the abdomen and pelvis were performed following the use of intrave nous and oral contrast. A dose lowering technique was utilized adhering to the principles of ALARA. COMPARISON STUDY: Chest CTA 10/31/2019. FINDINGS: Please refer to the recent chest CT for further evaluation of the lung bases. No pneumoperi toneum. No pneumatosis. No suspicious lytic are blastic osseous lesions. No hepatic or splenic masses . The gallbladder, pancreas, and kidneys are unremarkable. No hydronephrosis. Mild bilateral adrenal gland thickening. No suspicious adrenal gland nodules. No retroperitoneal lymphadenopathy. Moderate c alcified plaque within the aorta. No pelvic lymphadenopathy. The bladder is unremarkable. No pelvic f ree fluid. No bowel wall thickening or obstruction. A few colonic diverticula. No evidence for divert iculitis. Normal appendix. IMPRESSION: No evidence for metastatic disease within the abdomen or pelvis. ACT 112: Negative or not required by law. Electronically signed by: Lino Richey M.D. 11/02/2019 11:05 AM
[2019-11-02] MEDS: ALPRAZolam 0.25 MG TABLET PO PRN (15:51)
[2019-11-02] MEDS: cefTRIAXone SODIUM 2,000 MG in DEXTROSE 5% 50 ML IV SCH (15:52)
[2019-11-03] MEDS: DOXYCYCLINE HYCLATE 100 MG in DEXTROSE 5% 100 ML IV SCH (04:48)
[2019-11-03 06:12] LABS: Hematocrit (blood only) 46.8 % (42-52); Hemoglobin 15.7 g/dL (14.0-18.0); Mean Corpuscular Hemoglobin 31.8 pg (25-34); Mean Corpuscular Hgb Conc 33.5 g/dL (32-36); Mean Corpuscular Volume 94.7 fL (80-100); Mean Platelet Volume 8.9 fL (7.4-10.4); Platelet Count 298 K/uL (130-400); RDW Coefficient of Variation 13.2 % (11.5-14.5); RDW Standard Deviation 45.6 fL (36.4-46.3); Red Blood Count 4.94 M/uL (4.7-6.1); White Blood Count 8.17 K/uL (4.8-10.8)
[2019-11-03 06:39] LABS: BUN Creatinine Ratio 12.8 (10-20); Calcium 8.5 mg/dl (8.5-10.1); Creatinine Clr Calc Pharmacy 82.8 ml/min; Est GFR (Non-African American) 77.7; Potassium 3.8 mmol/L (3.5-5.1)
[2019-11-03] MEDS: UMECLIDINIUM/VILANTEROL 62.5/25MCG 7 PUFFS/INHALER INH SCH (08:25)
--- NOTE | 2019-11-03 09:04 | Discharge Summary ---
Date of Service November 03, 2019 Admission HPI Per Admitting Provider 64-year-old male with no significant past medical history (has not seen a healthcare provider in ~50 years) who presents to the ED after syncopal event. Patient reports he was walking through his house to check on his wood burner when he noted that his eyes were tracing up the wall and then to the ceiling. He then subsequently fell to the floor losing consciousness. No associated tongue biting, vomiting, loss of bowel or bladder function. Patient was brought to the ED via EMS for further evaluation. Patient denies any associated chest pain or shortness of breath. Reports he otherwise has been feeling well rec ently. Patient reports a chronic cough that is productive for yellow sputum at times. Patient is a lifelong smoker. Denies fevers and chills. No abdominal pain, nausea, diarrhea. Denies any urinary symptoms. In the ED, patient is mildly hypertensive at times, otherwise hemodynamically stable. Labs are unremarkable. Head CT is negative for acute findings. CTA chest negative for PE however shows infiltrative right hilar mass measures 5.8 x 5.4 x 4.7 cm suggestive of primary bronchogenic carcinoma and encases the adjacent pulmonary arteries and veins, bronchus intermedius and proximal lobar and segmental bronchi of the right middle and lower lobes. Adjacent subsegmental consolidative and nodular opacities of the right lower and middle lobes suggest postobstructive pneumonitis with satellite metastasis also in the differential. Patient was given IV ceftriaxone, IV doxycycline, IVF. Admission Exam Per Admitting Provider Constitutional: WD/WN, vitals as above Eyes: PERRL, conjunctivae normal, anicteric sclerae ENMT: external ear and nose normal, oropharynx normal Respiratory: normal respiratory effort; no respiratory distress Auscultation: + diminished lung sounds and + wheezes (Faint, expiratory, right base) Cardiovascular: Rate/Rhythm: regular rate and regular rhythm Vessels: normal peripheral pulses Extremities: + edema (Trace edema BLE) Gastrointestinal (Abdomen): normal bowel sounds, soft, nontender, no hepatosplenomegaly Inspection/Auscultation: + abdomen distended Musculoskeletal: no cyanosis or clubbing, extremities motor strength 5/5 Skin: no rashes, warm and dry Scattered areas of psoriasis Neurologic: PERRL, EOMI, accommodation nl, no face palsy, no dysarthria Psychiatric: A+Ox3, euthymic affect Principal Diagnosis Lung Mass Syncope Obstructive PNA Discharge Exam Physical Exam Gen-AAO x 3, NAD, Afebrile Head-NCAT, EOMI, PERRLA, Anicteric Sclera, No Posterior Pharyngeal Erythema Neck-Supple, No JVD, No Thyromegaly, No Masses, No LAD, No Bruits Lungs-Clear to Auscultation Bilaterally, No Rales, No Rhonchi, No Wheezing, No Crepitus Chest-No S4, +S1, +S2, No S3, No Murmurs, No Rubs, No Gallops, No Ectopy Abdomen-Soft, Bowel Sounds Present, Non Tender, Non Distended, No Hepatomegaly, No Splenomegaly, No Palpable Masses, No Rebound, No Rigidity, No Guarding Musculoskeletal-Full Range of Motion Bilaterally, No CVAT Extremities-No Cyanosis, No Clubbing, No Edema Nuero-Cranial Nerves II-XII grossly intact, Motor WNL, DTRs WNL, Strength WNL, Non Focal Psych-Normal Mood Discharge Data Allergies Allergy/AdvReac Type Severity Reaction Status Date / Time No Known Allergies Allergy Unverified 10/31/19 14:54 Consultations 10/31/19 16:12 ED Decision to Admit Stat 10/31/19 17:25 Consult Pulmonology Routine 11/02/19 16:10 Consult Case Management - Discharge Planning Routine Procedures Performed Operation Date: 11/03/19 12:30 <No data on this case meets the specified criteria> Ordered Studies 10/31/19 13:49 CT head/brain wo con Stat 10/31/19 14:26 CT angio chest PE protocol Stat 11/01/19 12:29 MR brain wo/w con Routine 11/02/19 07:07 CT abd pelvis oral and IV con Routine Current Diagnoses Pneumonia, unspecified organism (10/31/19) Elevated blood-pressure reading, without diagnosis of hypertension (10/31/19) Syncope and collapse (10/31/19) Localized enlarged lymph nodes (10/31/19) Other nonspecific abnormal finding of lung field (10/31/19) Encounter for prophylactic measures, unspecified (10/31/19) Allergies No Known Allergies Allergy (Unverified 10/31/19 14:54) Height/Weight/Isolation Height 5 ft 9 in Weight 94.7 kg Chemistry 05/03/20 05/04/20 06:15 05:48 Sodium 137 137 Potassium 4.4 3.8 Chloride 105 105 Carbon Dioxide 26 24 Anion Gap 6.0 8.0 BUN 12 13 Creatinine 1.01 1.01 Glucose 110 H 121 H Microbiology 10/31/19 16:13 Blood Aerobic Blood Culture - Preliminary No growth in Aerobic bottle after 48 hours. 10/31/19 16:13 Blood Anaerobic Blood Culture - Preliminary No growth in Anaerobic bottle after 48 hours. 10/31/19 16:14 Blood Aerobic Blood Culture - Preliminary No growth in Aerobic bottle after 48 hours. 10/31/19 16:14 Blood Anaerobic Blood Culture - Preliminary No growth in Anaerobic bottle after 48 hours. 10/31/19 17:55 Urine,Random Urine Culture - Final More than three types of organisms present, all moderate counts mixed probable skin nelsy. No further identifications or sensitivities to follow. Hospital Course (1) Syncope: -Patient presenting from home after a syncopal event -In the ED, vitals are stable and head CT is negative for acute findings. Chest CTA negative for PE however does show right lung mass. -Initial troponin negative, EKG without acute ST changes -Orthostatic BPs -He refused the Bronch Today and wants to be DCd f/u c Pulm in the office (2) Mass of right lung: (3) Pneumonia: -CTA chest showing infiltrative right hilar mass measures 5.8 x 5.4 x 4.7 cm suggestive of primary bronchogenic carcinoma and encases the adjacent pulmonary arteries and veins, bronchus intermedius and proximal lobar and segmental bronchi of the right middle and lower lobes. Adjacent subsegmental consolidative and nodular opacities of the right lower and middle lobes suggest postobstructive pneumonitis with satellite metastasis also in the differential. -Saturating well on room air -Afebrile, WBC 11.8K -DC on ceftin and doxycycline -Pulmonary Dr. Freedman (4) Elevated blood pressure, situational: -Intermittently elevated BP readings in the ED, likely situational -Continue to monitor BP, providing antihypertensive if needed (5) DVT prophylaxis: -SCDs due to lung mass involving pulmonary arteries and veins /possible need for invasive procedure Total Time Total Time Spent Total Time Spent (In Minutes): 45 mins Total Time Includes: Examination of the Patient, Discharge Planning, Medication Reconciliation and Communication With Other Providers Discharge Plan Discharge Items Patient Disposition: Home - Self-Care Reason For Visit: SYNCOPE,LUNG MASS Discharge Diagnosis: Lung Mass Syncope Post Obstr PNA Condition on Discharge: Good Activity: Resume your previous activity Lifting: Gradually increase as tolerated Bathing: No limitations Sexual Activity: When tolerated Exercise/Sports: Gradually increase as tolerated Driving/Machine Use: No limitations Weightbearing: Full weightbearing Non-emergency contact: Primary Care Provider and Hand Braille Transcriber Call non-emergency contact if: you have any medication questions Follow-up/Referrals: Eugenia Freedman MD [Physician] - (Please call Dr. Freedman's office for an appointment.) PCP,NO [Primary Care Provider] - Diet: Regular Addtl Attending Provider Instructions: Follow up with Dr Freedman and he will refer you to a Cancer specialist Pending Studies at Discharge: No Studies:: Bronch-Refused Bronch Stand-Alone Forms: My [employer], Smoking Cessation Medications and DC Order Prescriptions: New cefuroxime axetil 500 mg tablet 500 mg PO BID 10 Days Qty: 20 RF: 0 doxycycline monohydrate 100 mg capsule 100 mg PO BID 10 Days Qty: 20 RF: 0 No Action No Known Home Medications RF: 0 Discharge Orders: Discharge Order (Routine); Ordered 11/03/19 Ordered By: Dharmesh Benitez Admission Data Admit Date/Time: 10/31/19 16:40 Attending Provider: Dharmesh Benitez Admit Provider: Dharmesh Benitez Primary Care Provider: PCP,NO Other Providers: Dharmesh Benitez ; Eugenia Freedman
--- NOTE | 2019-11-03 09:21 | Pulmonology Progress Note ---
Date of Service November 03, 2019 Assessment & Plan (1) LAD (lymphadenopathy), mediastinal: Impression: 64-year-old male with history of tobacco abuse presenting with pathologically enlarged mediastinal and hilar lymph nodes. Picture is very concerning for malignant etiology. Recommendations: 1. Patient will proceed with bronchoscopy with endobronchial ultrasound and transbronchial needle aspiration of multiple lymph node stations today. Consent was obtained. Risks and benefits and alternatives were discussed extensively with the patient. 2. Patient will require outpatient PET scanning to be performed. MRI of the brain showed no significant abnormalities graft 3. Patient may require outpatient medical oncology and radiation oncology follow-up depending on results of bronchoscopy. If he does well after the procedure, he can likely be dismissed home with outpatient follow-up. 3. COPD: Outpatient pulmonary function testing will be required. As he is asymptomatic currently, will hold off on inhalers. The above recommendation and plan were extensively discussed with the patient at time of evaluation. Questions were answered to the best my ability. He expressed understanding and is in agreement with the plan as outlined.212 (2) Mass of hilum: Admission and Anticipated Discharge Date Admission Date: October 31, 2019 Anticipated date of discharge: 11/02/19 Subjective Patient seen and examined. EMR reviewed. Patient offers no complaints this morning. No cough shortness of breath or chest pain. No hemoptysis. No fevers chills or night sweats. He is asking about when he can possibly be dismissed from the hospital. Review of Systems Review of Systems: All systems reviewed & are unremarkable except as noted in HPI & below Physical Exam Constitutional: WD/WN, vitals as above Neck: trachea midline, no thyromegaly Respiratory: normal respiratory effort, lungs clear to auscultation Cardiovascular: RRR, no murmur, no edema Gastrointestinal (Abdomen): normal bowel sounds, soft, nontender, no hepatosplenomegaly Musculoskeletal: Extremities: extremities normal to inspection Skin: no rashes, warm and dry Neurologic: Nonfocal exam Lymphatic: no cervical lymphadenopathy Results & Data Results & Data ([facility]) Vital Signs (Past 12 Hours) Vital Signs Temp Pulse Pulse Resp BP BP Pulse Ox 11/03/19 07:27 80 11/03/19 07:24 36.5 C 83 18 196/84 H 95 11/03/19 04:08 36.9 C 84 18 180/87 H 94 11/02/19 23:04 36.6 C 91 H 16 153/77 H 94 11/02/19 22:20 83 Laboratory Results 11/03/19 05:49 11/03/19 05:[address] of the chest independently reviewed. There is bulky mediastinal and hilar adenopathy with bronchial narrowing of the bronchus intermedius and orifice to the right middle lobe with surrounding soft tissue density. Bulky adenopathy is identified within level 7, level 4R, and level 2R. Small lymph nodes are also identified in the AP window region and in the prevascular region of the mediastinum. A small calcified granuloma is present within the left lower lobe. The adrenal glands do appear mildly thickened bilaterally. PG Care Time/CCT Total # of Minutes Spent Total Time Spent with Patient: Total time spent is greater than 50% in coordination of care (as documented) at patient's floor/unit and/or counseling patient: Coding Level of Care Code 37726 Subseq Hosp Care Lvl 3 Diagnoses LAD (lymphadenopathy), mediastinal R59.0 Mass of hilum R91.8
== END 2019-11-03 11:40 | disposition home or self-care (01) | DRG 194 ==
LOC: ED 13:25 → 2S 16:40 → 2W 11-02 01:36

== ENCOUNTER 2019-11-13 07:26 | Inpatient (IN) ==
--- NOTE | 2019-11-13 07:48 | Emergency Department Note ---
History of Present Illness General Chief complaint: Seizure Stated complaint: seizure Time Seen by Provider: 11/13/19 07:29 Source: patient, family (girlfriend) and RN notes reviewed Mode of arrival: EMS Limitations: no limitations History of Present Illness This patient comes in after having a seizure at home. He this happened around 6:00 his girlfriend heard him fall over. There is no trauma. He had 3 seizure- like episodes within the last 24 hours where his eyes were open but he was nonresponsive. He was shaking with his eyes open and nonresponsive. There is no tongue biting. No definite trauma. He was incontinent after this. He was postictal when the paramedics arrived but was not seizing. At present he denies any complaints. He was admitted here just under 2 weeks ago after having a syncopal episode and was discovered to have bronchogenic carcinoma. He has declined bronchoscopy. He also had pneumonia and finished doxy and cefuroxime. He says he is been feeling better in that regard. He said no fever or cough or shortness of breath. No lower extremity pain or swelling. He denies any neurologic symptoms at present. Denies any headache. No numbness weakness. No difficulty speaking or swallowing he is somewhat hard of hearing but answers all questions appropriately. Allergies Allergy/AdvReac Type Severity Reaction Status Date / Time No Known Allergies Allergy Unverified 11/13/19 08:12 Past Med/Surg History Medical History LAD (lymphadenopathy), mediastinal Mass of hilum Tobacco abuse Surgical History No significant past surgical history Family History Mother Leukemia Father Heart disease Stroke Social History Preferred Language: Thai Communication Ability: Effective Academy Director Required: No Beliefs That Will Affect Care: None Current Living Situation: Significant Other Other Information That Helps Us Care for You: No Feels Safe at Home: Yes Safety Concerns: Feels Safe At This Time Smoking Status: Current every day smoker Tobacco Type: cigarettes ; Cigarettes Per Day: 10 ; Do You Dip or Chew Tobacco: No ; Second Hand Exposure: No ; Tobacco Cessation Education Requested by Patient: No Hx Alcohol Use: Yes Alcohol type: beer Alcohol Intake Frequency: Weekly Hx Substance Use: No Review of Systems A total of 10 systems reviewed and were otherwise negative Physical Exam Vital Signs Vital Signs - 24 hr 11/13/19 07:30 11/13/19 08:40 Temperature 37.1 C Temperature Source Oral Pulse Rate 86 Pulse Rate [Apical] 82 Pulse Rhythm Regular Pulse Rhythm [Apical] Regular Pulse Strength Normal Pulse Strength [Apical] Normal Respiratory Rate 22 20 Respiratory Effort / Characteristics Non-Labored Spontaneous Non-Labored Spontaneous Respiratory Depth Normal Normal Respiratory Pattern Regular Regular Blood Pressure 176/91 H Blood Pressure [Left Arm] 138/91 Blood Pressure Mean 119 Blood Pressure Mean [Left Arm] 106 Blood Pressure Position Sitting Blood Pressure Position [Left Arm] Sitting Pulse Oximetry 96 96 Oxygen Delivery Method Room Air Room Air Sepsis Recent Fever Within 48 Hours No Sepsis New/Unexplained Change in Mental Status No Sepsis Action Taken by Nursing No Action Required General: Well developed well nourished middle-age male who appears in no acute distress, breathing comfortably on room air. Normal speech. He is mildly hard of hearing but answers all questions appropriately is alert and oriented x3 HEENT: Normal cephalic atraumatic. Pupils are equal round and reactive to light. Extraocular movements are intact. Oropharynx is pink with moist mucous membranes. No swelling of the mouth lips or tongue. Neck: Supple with a midline trachea. No meningeal signs or stiffness, no JVD or bruits. No Stridor. Chest: Clear to auscultation bilaterally. No wheezes or rhonchi. No increased work of breathing. Heart: Regular rate and rhythm without murmurs or gallops. Abdomen: Soft nontender, nondistended without rebound guarding or rigidity. Extremities: No cyanosis clubbing or edema. No calf tenderness or assymetry Spine/Back. Non tender to palpation. No CVA tenderness Skin: Good turgor without rashes. Neurologic exam: Cranial nerves two through 12 are intact. Motor and sensation are intact and symmetrical throughout. No tremor. Course Administered Medications Gadobutrol (Gadavist 65ml) 9.5 ml IV ONCE PRN PRN Reason: Interaction Checking Stop: 11/17/19 11:11 Last Admin: 11/13/19 11:12 Dose: 9.5 ml Documented by: [id number] Discontinued Medications Sodium Chloride (Nss 1000ml) 1,000 mls @ 999 mls/hr IV .Q1H1M ONE Stop: 11/13/19 08:55 Last Admin: 11/13/19 09:04 Dose: Not Given Documented by: [id number] Levetiracetam 1,000 mg/ Sodium (Chloride) 100 mls @ 440 mls/hr IV NOW STA Stop: 11/13/19 08:21 Last Infusion: 11/13/19 09:04 Dose: 0 mls/hr Documented by: [id number] Admin: 11/13/19 08:40 Dose: 440 mls/hr Documented by: [id number] Lorazepam (Ativan) Confirm Administered Dose 2 mg .ROUTE .STK-MED ONE Stop: 11/13/19 10:40 Last Admin: 11/13/19 10:42 Dose: 1 mg Documented by: [id number] Medical Decision Making Differential Diagnosis Includes but is not limited to: Seizure, syncope, arrhythmia, infection, electrolyte or metabolic abnormality, toxicologic process Medical Records Attestation: I reviewed the patient's medical records. Home Medications Current Medication List: was personally reviewed by me Laboratory Data Attestation: I reviewed the patient's lab results. Result diagrams: 11/13/19 07:56 11/13/19 07:56 Lab Results 11/13/19 11/13/19 Range/Units 07:56 07:56 WBC 9.00 (4.8-10.8) K/uL RBC 4.85 (4.7-6.1) M/uL Hgb 15.0 (14.0-18.0) g/dL Hct 45.8 (42-52) % MCV 94.4 (80-100) fL MCH 30.9 (25-34) pg MCHC 32.8 (32-36) g/dL RDW Std Deviation 45.5 (36.4-46.3) fL RDW Coeff of Argelia 13.2 (11.5-14.5) % Plt Count 356 (130-400) K/uL MPV 9.1 (7.4-10.4) fL Immature Gran % (Auto) 0.1 % Neut % (Auto) 77.3 % Lymph % (Auto) 12.9 % Rosebud % (Auto) 8.1 % Eos % (Auto) 1.2 % Baso % (Auto) 0.4 % Immature Gran # (Auto) 0.01 (0.00-0.02) K/uL Neut # (Auto) 6.95 H (1.4-6.5) K/uL Lymph # (Auto) 1.16 L (1.2-3.4) K/uL Rosebud # (Auto) 0.73 H (0.11-0.59) K/uL Eos # (Auto) 0.11 (0-0.5) K/uL Baso # (Auto) 0.04 (0-0.2) K/uL Sodium 137 (136-145) mmol/L Potassium 3.9 (3.5-5.1) mmol/L Chloride 104 (98-107) mmol/L Carbon Dioxide 24 (21-32) mmol/L Anion Gap 9.0 (3-11) BUN 11 (7-18) mg/dl Creatinine 0.92 (0.6-1.4) mg/dl Est Cr Clr Drug Dosing 91.3 ml/min Est GFR ( Amer) 100.8 Est GFR (Non-Af Amer) 87.0 BUN/Creatinine Ratio 11.7 (10-20) Glucose 130 H (70-99) mg/dl Calcium 8.7 (8.5-10.1) mg/dl Total Bilirubin 0.7 (0.2-1) mg/dl AST 18 (15-37) U/L ALT 30 (12-78) U/L Alkaline Phosphatase 62 (45-117) U/L Troponin I < 0.015 (0-0.045) ng/ml Total Protein 7.6 (6.4-8.2) gm/dl Albumin 3.3 L (3.4-5.0) gm/dl Globulin 4.3 H (2.5-4.0) gm/dl Albumin/Globulin Ratio 0.8 L (0.9-2) Imaging Data Radiologist's Impression: Head CT: No acute finding Chest Xray- 1. Increased interstitial prominence in the right mid to lower lung slightly asymmetrically worse in comparison to the left. Developing infiltrate or asymmetric congestive change may be present. 2. Prominence of the right hilum persists correlating with the underlying right hilar mass. 3. Borderline cardiomegaly. ECG Data Attestation: I personally reviewed and interpreted this ECG as follows: Indication: + syncope Rate (beats per minute): 84 Rhythm: + normal sinus ECG Intervals/blocks: + Normal QRS, + Normal QT and + Normal NH ECG [place]: + Normal ECG ST segments: + Normal ST segments ECG Findings: no PACs and no PVCs Comparison ECG Date: from (11/13/19) Change: no significant change Blood Pressure Blood Pressure Findings: Elevated blood pressure Blood Pressure Disposition: elevated BP felt to be situational MDM Narrative This patient comes in as described above. He has seizure-like episodes but at present is doing better. His blood sugar was checked in the and was in the low 100s. He was here less than 2 weeks ago and had a syncopal episode at the time he was also diagnosed with a lung mass. He was placed on a conveyor monitor room C9. IV access established and blood work was obtained. Initial EKG shows normal sinus rhythm with a rate of 84. No acute ischemic changes or ectopy seen. Talking to the girlfriend it sounds like these were in all likelihood seizures rather than syncope or other. With him having 3 in the last 24 hours we did opt to load him on IV Keppra. Seizure precautions were applied. Chest x-ray shows a lung mass that was known. He has no white count or fever to suggest infection. He has no acute electrolyte or metabolic abnormalities which would explain his seizure. We did repeat the CAT scan of his head and it shows no acute findings. The patient has remained stable. We did consult the hospitalist to see him in the ED they did and they are going to admit him. Just prior to going up he did apparently have another seizure that was witnessed by housekeeping. The nurse called me when I went and he was not seizing and he was without complaints and mildly postictal. I did call and let the [facility] team know they have ordered some Ativan and an MRI and he will further be admitted. Continuous conveyor monitor note: An order was placed for continuous conveyor monitor due to his seizure like activity. He was noted to be an normal sinus rhythm with a rate of 86. Impression & Plan Seizure, Mass of right lung Discharge Plan Visit Data *Final* Discharge Date/Time: 11/13/19 11:22 Chief Complaint: Seizure Stated Complaint: seizure ED Provider: Thanh Matson ED Midlevel Provider: Karlo Valdes Discharge Problem: Seizure, Mass of right lung Patient Disposition: Admitted As Inpatient Discharge Instructions Interventions: ED Discharge Assessment Last Done: 11/13/19 11:22
[2019-11-13] MEDS ORDERED: SODIUM CHLORIDE 0.9% 1000ML 1,000 ML IV ONE (07:55)
[2019-11-13] MEDS ORDERED: levETIRAcetam 1,000 MG in 0.9 % SODIUM CHLORIDE 100 ML IV STA (08:08)
[2019-11-13 08:09] LABS: Basophils # (auto) 0.04 K/uL (0-0.2); Basophils % (auto) 0.4 %; Eosinophils # (auto) 0.11 K/uL (0-0.5); Eosinophils % (auto) 1.2 %; Hematocrit (blood only) 45.8 % (42-52); Immature Granulocytes # (auto) 0.01 K/uL (0.00-0.02); Immature Granulocytes % (auto) 0.1 %; Lymphocytes # (auto) 1.16 K/uL (1.2-3.4); Lymphocytes % (auto) 12.9 %; Mean Corpuscular Hemoglobin 30.9 pg (25-34); Mean Corpuscular Hgb Conc 32.8 g/dL (32-36); Mean Corpuscular Volume 94.4 fL (80-100); Mean Platelet Volume 9.1 fL (7.4-10.4); Monocytes # (auto) 0.73 K/uL (0.11-0.59); Monocytes % (auto) 8.1 %; Neutrophils # (auto) 6.95 K/uL (1.4-6.5); Neutrophils % (auto) 77.3 %; Platelet Count 356 K/uL (130-400); RDW Coefficient of Variation 13.2 % (11.5-14.5); RDW Standard Deviation 45.5 fL (36.4-46.3); Red Blood Count 4.85 M/uL (4.7-6.1)
--- NOTE | 2019-11-13 08:14 | XRay Report ---
XR chest 1V portable CLINICAL HISTORY: 64 years-old Male presenting with hx pneumonia and ca, new seizure. TECHNIQUE: Portable upright AP view of the chest was obtained. COMPARISON: 10/31/2019 and CTA chest from 10/31/2019. FINDINGS: Borderline enlargement of the cardiac silhouette. Mild prominence of the right hilum with interval in crease in interstitial lung markings asymmetrically greater in the right mid to lower lung. Mildly lo w lung volumes. No large effusion or pneumothorax. Degenerative changes of the thoracic spine. Upper abdomen normal. IMPRESSION: 1. Increased interstitial prominence in the right mid to lower lung slightly asymmetrically worse in comparison to the left. Developing infiltrate or asymmetric congestive change may be present. 2. Prominence of the right hilum persists correlating with the underlying right hilar mass. 3. Borderline cardiomegaly. ACT 112: Negative or not required by law. Electronically signed by: Yadiel Alvarenga M.D. 11/13/2019 8:12 AM
[2019-11-13 08:25] LABS: Alanine Aminotransferase 30 U/L (12-78); Albumin Level 3.3 gm/dl (3.4-5.0); Aspartate Aminotransferase 18 U/L (15-37); BUN Creatinine Ratio 11.7 (10-20); Blood Urea Nitrogen 11 mg/dl (7-18); Calcium 8.7 mg/dl (8.5-10.1); Carbon Dioxide 24 mmol/L (21-32); Chloride 104 mmol/L (98-107); Creatinine Clr Calc Pharmacy 91.3 ml/min; Est GFR (African American) 100.8; Glucose 130 mg/dl (70-99); Potassium 3.9 mmol/L (3.5-5.1); Sodium 137 mmol/L (136-145)
[2019-11-13 08:30] LABS: Albumin Globulin Ratio 0.8 (0.9-2); Alkaline Phosphatase 62 U/L (45-117); Bilirubin,Total 0.7 mg/dl (0.2-1); Globulin 4.3 gm/dl (2.5-4.0); Total Protein 7.6 gm/dl (6.4-8.2); Troponin I < 0.015 ng/ml (0-0.045)
--- NOTE | 2019-11-13 08:45 | CT Scan Report ---
CT head/brain wo con CLINICAL HISTORY: 64 years-old Male presenting with new onset seizure. TECHNIQUE: Multidetector CT imaging of the head was performed without the use of intravenous contrast . IV contrast: None. One or more dose lowering techniques were used consistent with the principles of ALARA (as low as reasonably achievable), including automatic exposure control, mA or kV adjustment t o individual patient size, and/or use of iterative reconstruction. COMPARISON: 10/31/2019. CT DOSE (mGy.cm): The estimated cumulative dose is 1467.65 mGy.cm. FINDINGS: Manager Field Service topogram: Unremarkable. Ventricles and sulci normal in size. No hemorrhage. Brain parenchyma normal in appearance with preser sukhdeep lawrence-white differentiation. No acute territorial infarct. No mass effect or midline shift. No ext ra-axial fluid collection. Paranasal sinuses and mastoid air cells clear. Calvarium intact. IMPRESSION: 1. No acute intracranial abnormality. ACT 112: Negative or not required by law. Electronically signed by: Yadiel Alvarenga M.D. 11/13/2019 8:43 AM
--- NOTE | 2019-11-13 08:48 | Emergency Department Note ---
ED Visit Note Patient seen and examined in conjunction with Dr. Matson. Please see his note for medical decision making. . Resident Activity Tracking Resident Involvement: Resident Care Provided Care Provided: Adult ED
[2019-11-13] MEDS ORDERED: LORazepam 1 MG/2 ML VIAL IV PRN (09:30)
--- NOTE | 2019-11-13 10:07 | History & Physical Report ---
Date of Service November 13, 2019 Assessment & Plan (1) Seizure: Pt is 64 y/o M with PMH Tobacco use, newly discovered lung mass presents to ER with c/o seizure-like activity. History obtained with assistance from patient's girlfriend, Cele whom which he lives. She reports pt had 3 episodes of being found stiff, eyes open, not responding with movements of mouth with drooling. Episodes last approx 2 minutes and takes pt approx 20 minutes to become alert and conversive however is very lethargic after. This morning episode with loss control of bladder. In ER pt afebrile, P: 86, BP: 176/91 down to 138/91, R: 22 down to 22, 96% on RA. No leukocytosis, glucose 130, no other significant electrolyte abnormality CT HEAD: No acute intracranial abnormality. -In ER loaded with Keppra 1000 mg IV -We will start Keppra 500 mg twice daily -Ativan as needed seizure-like activity -Seizure precautions -MRI brain -EEG -Neurology consult, on-call aware -CBC, BMP in am (2) Mass of hilum: Recently found hilum mass on last admission CXR today: 1. Increased interstitial prominence in the right mid to lower lung slightly asymmetrically worse in comparison to the left. Developing infiltrate or asymmetric congestive change may be present. 2. Prominence of the right hilum persists correlating with the underlying right hilar mass. 3. Borderline cardiomegaly. -Last admission pt denied bronchoscopy. -Spoke with pt's brother and pt's girlfriend who both feel pt should have this investigated further -Did further discuss with pt today. Will readdress during admission (3) Tobacco abuse: 0.5-1ppd smoker x 40 years -Smoking cessation encouraged -Denies nicotine patch DVT Prophylaxis -Lovenox SQ Does not not have PCP Pt was seen and care coordinated with Dr Bullard. See addendum History of Present Illness Chief Complaint: Possible Seizure Primary Care Provider: No PCP Pt is 64 y/o M with PMH Tobacco use, newly discovered lung mass presents to ER with c/o seizure-like activity. Patient is poor historian. History obtained with assistance from patient's girlfriend, Cele whom which he lives. She reports on 11/19/2019 she had found patient lying on the kitchen floor and patient was stiff, had his eyes open but had noted moving sensation of mouth with spit coming from his mouth. He was not responding and she had noticed that he had loss of control of his urine. She reports when EMS came patient was snoring and patient was brought to hospital. Patient with recent hospitalization 10/31/2019-11/03/2019 which at that time was thought secondary possible syncopal episode and was found to have hilar mass. Was seen by pulmonology during that admission. Bronchoscopy was recommended however patient denied. He had MRI brain which was negative. Patient was discharged on Ceftin and doxycycline which he finished today. She states last night patient was lying on couch sleeping when she noticed he had his eyes open and was stiff and had strange movements of his mouth this lasted approximately 2 minutes. Patient states he was very groggy afterwards. States had another episode when patient was sleeping in bed around 11 PM yesterday which lasted approximately 10 seconds. This morning she heard a thump and went in bedroom to found patient laying on floor beside his bed and patient was stiff, had his eyes open had movements of his mouth with spit coming from his mouth and was not responding which also lasted approximately 2 minutes. She reports approximately 20 minutes later patient was very sleepy. She did note had loss of control of his bladder with this episode. EMS was called and patient was brought to hospital. Currently patient denying any complaint of headache, dizziness, extremity pain or paresthesias. He states he feels tired. Patient reports has had scaly rash to elbows and hands bilaterally that is itchy and sometimes has edema of wrist and patient reports has intermittent joint stiffness and aching. Patient does not follow with however he has self diagnosed himself with psoriasis. Patient denies any cough, shortness of breath, chest pain, fever, chills, diaphoresis, N/V/D/C, vision changes, neck pain, orthopnea, palpitations, sore throat, choking, otalgia, rhinorrhea, abdominal pain, paresthesias, weakness, extremity weakness, extremity edema, other rashes, urinary symptoms. Denies recent travel, ill contacts. Denies other OTC meds or supplements or herbal medicaitions. In ER it is reported that housekeeping walked by patient's room and thought that patient may have had seizure-like activity, by the time evaluated patient it is reported that he was sleepy. Patient was loaded with Keppra IV. 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 Beliefs That Will Affect Care: None Current Living Situation: Significant Other Feels Safe at Home: Yes Smoking Status: Current every day smoker (45 PACK YEARS) Tobacco Type: cigarettes ; Cigarettes Per Day: 10 ; Second Hand Exposure: No ; Hx Alcohol Use: Yes Alcohol type: beer Alcohol Intake Frequency: Weekly Hx Substance Use: No Review of Systems Review of Systems: All systems reviewed & are unremarkable except as noted in HPI & below Physical Exam Physical Exam: General: no distress, WDWN Head: normocephalic, atraumatic Eyes: PERRL, EOM's intact, conjunctiva non-injected, anicteric ENT: normal inspection external ears, nose, tongue without laceration, mucous membranes moist Neck: supple, trachea midline, non-tender Lungs: clear, no respiratory distress, no wheezing/rhonchi/rales CV: RRR, no murmur, no pretibial edema Abd: normal BS, soft, non-tender Ext: no cyanosis, no calf tenderness Neuro: Alert, oriented to month, year, president, location and self, no focal deficits noted, normal affect Skin: warm, dry, +erythematous scaling plaques to dorsal hands and elbows with surrounding excoriations Results & Data Results & Data ([facility]) Vital Signs (Past 12 Hours) Vital Signs Temp Pulse Pulse Resp BP BP Pulse Ox 11/13/19 08:40 82 20 138/91 96 11/13/19 07:30 37.1 C 86 22 176/91 H 96 Laboratory Results Short CBC 11/13/19 Range/Units 07:56 WBC 9.00 (4.8-10.8) K/uL Hgb 15.0 (14.0-18.0) g/dL Hct 45.8 (42-52) % Plt Count 356 (130-400) K/uL BMP 11/13/19 07:56 Sodium 137 Potassium 3.9 Chloride 104 Carbon Dioxide 24 BUN 11 Creatinine 0.92 Glucose 130 H Calcium 8.7 Cardiac Enzymes 11/13/19 Range/Units 07:56 Troponin I < 0.015 (0-0.045) ng/ml Liver Function 11/13/19 Range/Units 07:56 Total Bilirubin 0.7 (0.2-1) mg/dl AST 18 (15-37) U/L ALT 30 (12-78) U/L Alkaline Phosphatase 62 (45-117) U/L Albumin 3.3 L (3.4-5.0) gm/dl Diagnostic Findings CXR: IMPRESSION: 1. Increased interstitial prominence in the right mid to lower lung slightly asymmetrically worse in comparison to the left. Developing infiltrate or asymmetric congestive change may be present. 2. Prominence of the right hilum persists correlating with the underlying right hilar mass. 3. Borderline cardiomegaly. CT HEAD: IMPRESSION: 1. No acute intracranial abnormality. 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
[2019-11-13] MEDS ORDERED: LORazepam 2 MG/4 ML VIAL ONE (10:39)
[2019-11-13] MEDS ORDERED: GADOBUTROL 65ML VIAL IV PRN (11:12)
--- NOTE | 2019-11-13 11:55 | Magnetic Resonance Report ---
MRI OF THE BRAIN COMBO CLINICAL HISTORY: Seizure. Lung cancer. COMPARISON STUDY: CT of the brain dated 11/13/2019. MRI of the brain dated 11/01/2019. TECHNIQUE: MRI of the brain was performed utilizing various T1 and T2-weighted sequences in the axial , sagittal, and coronal planes. Contrast-enhanced sequences were acquired following the administratio n of 9.5 cc of Gadavist. The examination is performed using the seizure protocol. FINDINGS: Brain parenchyma: There is mild subcortical and periventricular microangiopathic disease. There is no hemorrhage or mass effect. There is no restricted diffusion to suggest acute ischemia. No enhancing mass lesion is identified on the postcontrast images. Hanson-white matter differentiation is preserved. No extra-axial fluid collection is seen. The cerebellar tonsils are normal in configuration. The hip pocampi are normal and symmetric. Ventricles, sulci, and cisterns: Normal in configuration. Pituitary and sella: Unremarkable. Intracranial vasculature: Normal flow voids are maintained at the skull base. Orbits: The bony orbits are grossly intact. Orbital contents are normal in appearance. Sinuses and mastoids: A 10 mm retention cyst is noted in the right maxillary antrum. The paranasal si nuses are otherwise clear. The mastoid air cells are well pneumatized. Calvarium: Unremarkable. Cervical cord: Partially visualized cervical spinal cord is normal in morphology and signal intensity . IMPRESSION: No acute intracranial abnormality and no significant change from study performed 12 days ago. ACT 112: Negative or not required by law. Electronically signed by: Alek Garcia M.D. 11/13/2019 11:54 AM
[2019-11-13] MEDS ORDERED: ONDANSETRON INJ 2 MG/ML 2 ML VIAL IV PRN (13:18)
[2019-11-13] MEDS ORDERED: ACETAMINOPHEN 325 MG TAB PO PRN (13:18)
[2019-11-13] MEDS ORDERED: MAGNESIUM HYDROXIDE SUSP 30 ML UDC PO PRN (13:18)
[2019-11-13] MEDS ORDERED: POLYETHYLENE (MIRALAX) 17 GM PACK PO PRN (13:18)
[2019-11-13] MEDS ORDERED: ALUMINUM/MAGNESIUM SUSP 30 ML UDC PO PRN (13:18)
[2019-11-13] MEDS: SODIUM CHLORIDE 0.9% 1000ML 1,000 ML IV SCH ×2 (14:09→23:28)
--- NOTE | 2019-11-13 14:48 | Neurology Consultation ---
Date of Consultation November 13, 2019 Assessment & Plan (1) Seizure: A 64 year old male admitted with suspected new onset seizure in the setting of newly diagnosed lung mass. Clinical history suggestive of seizure. Routine EEG showed normal asleep EEG. MRI brain reviewed and I do not see any evidence of metastatic disease or acute stroke althought there is some motion artifact. Agree with starting and continuing Keppra 500 mg BID. Will defer lung mass work up to primary team. I did discuss [place] restrictions wiht patient. Patient can not drive for 6-months. Outpatient follow up in Neurology clinic in 3-months. Please call with any further questions or concerns. History of Present Illness Attending Physician: Meeta Bullard MD History of Present Illness A 64 year old male with newly discovered lung mass admitted for new onset seizure. The patient is a poor historian. History obtained from medical chart. He was found on 10/31/2019 lying on the kitchen floor and patient was stiff, had his eyes open but had noted moving sensation of mouth with spit coming from his mouth. He was not responding and she had noticed that he had loss of control of his urine. She reports when EMS came patient was snoring and patient was brought to hospital. He was hospitalized from 10/31/2019-11/03/2019 which at that time was thought secondary possible syncopal episode and was found to have hilar mass. Was seen by pulmonology during that admission. Bronchoscopy was recommended however patient denied. He had MRI brain which was negative. Patient was discharged on Ceftin and doxycycline which he finished today. Last night patient was lying on couch sleeping when she noticed he had his eyes open and was stiff and had strange movements of his mouth this lasted approximately 2 minutes. Patient states he was very groggy afterwards. States had another episode when patient was sleeping in bed around 11 PM yesterday which lasted approximately 10 seconds. This morning she heard a thump and went in bedroom to found patient laying on floor beside his bed and patient was stiff, had his eyes open had movements of his mouth with spit coming from his mouth and was not responding which also lasted approximately 2 minutes. She reports approximately 20 minutes later patient was very sleepy. She did note had loss of control of his bladder with this episode. EMS was called and patient was brought to hospital. In ER it is reported that housekeeping walked by patient's room and thought that patient may have had seizure-like activity, by the time evaluated patient it is reported that he was sleepy. Patient was loaded with Keppra IV. Allergies Allergy/AdvReac Type Severity Reaction Status Date / Time No Known Allergies Allergy Unverified 11/13/19 08:12 Patient History Medical History LAD (lymphadenopathy), mediastinal Mass of hilum Tobacco abuse Surgical History No significant past surgical history Family History Mother Leukemia Father Heart disease Stroke Social History Preferred Language: Sudanese Communication Ability: Effective Pst Manager Required: No Beliefs That Will Affect Care: None Current Living Situation: Significant Other Other Information That Helps Us Care for You: No Feels Safe at Home: Yes Safety Concerns: Feels Safe At This Time Smoking Status: Current every day smoker Tobacco Type: cigarettes ; Cigarettes Per Day: 10 ; Do You Dip or Chew Tobacco: No ; Second Hand Exposure: No ; Tobacco Cessation Education Requested by Patient: No Hx Alcohol Use: Yes Alcohol type: beer Alcohol Intake Frequency: Weekly Hx Substance Use: No Physical Exam Physical Exam: Appears chronically ill and obese. Dishelved appearing. Lethargic but oriented to person, place, and time. Left eye ptosis. Speech is mildly slurred. Following commands. Face symmetric. Tongue midline with no abrasion. No tremor or asterixis. Stength is symmetrical in both upper extremities. Pupils are queal. Raises eye brows. Piper negative. Sensation intact. Psoriasis noted. Breathing is non labor. Flat affect. Results & Data Vital Signs (Past 12 Hours) Vital Signs Temp Pulse Pulse Resp BP BP Pulse Ox 11/13/19 10:45 96 H 20 141/90 H 96 11/13/19 10:43 80 20 134/74 95 11/13/19 08:40 82 20 138/91 96 11/13/19 07:30 37.1 C 86 22 176/91 H 96 Diagnostic Findings MRI brain w/wo on 11/13/19: IMPRESSION: No acute intracranial abnormality and no significant change from study performed 12 days ago. Routine EEG: Normal asleep EEG
[2019-11-13] MEDS: ENOXAPARIN INJ 40 MG/0.4 ML SYR SQ SCH (15:52)
--- NOTE | 2019-11-13 16:04 | Electroencephalogram ---
EEG Procedure Note Date of Service November 13, 2019 Start / End Times Start Time: 12:13 End Time: 12:[address] Bullard History A 64 year old male with new onset Seizure. EEG performed for evaluation of epileptiform activity. Inpatient Medication List Enoxaparin Sodium (Lovenox) 40 mg SQ Q24H KALIA Stop: 12/13/19 14:59 Last Admin: 11/13/19 15:52 Dose: 40 mg Documented by: [id number] Gadobutrol (Gadavist 65ml) 9.5 ml IV ONCE PRN PRN Reason: Interaction Checking Stop: 11/17/19 11:11 Last Admin: 11/13/19 11:12 Dose: 9.5 ml Documented by: [id number] Sodium Chloride (Nss 1000ml) 1,000 mls @ 100 mls/hr IV .Q10H KALIA Stop: 12/13/19 13:29 Last Admin: 11/13/19 14:09 Dose: 100 mls/hr Documented by: [id number] Discontinued Medications Sodium Chloride (Nss 1000ml) 1,000 mls @ 999 mls/hr IV .Q1H1M ONE Stop: 11/13/19 08:55 Last Admin: 11/13/19 09:04 Dose: Not Given Documented by: [id number] Levetiracetam 1,000 mg/ Sodium (Chloride) 100 mls @ 440 mls/hr IV NOW STA Stop: 11/13/19 08:21 Last Infusion: 11/13/19 09:04 Dose: 0 mls/hr Documented by: [id number] Admin: 11/13/19 08:40 Dose: 440 mls/hr Documented by: [id number] Lorazepam (Ativan) Confirm Administered Dose 2 mg .ROUTE .STK-MED ONE Stop: 11/13/19 10:40 Last Admin: 11/13/19 10:42 Dose: 1 mg Documented by: [id number] Description This is a 21 electrode EEG with a single channel dedicated to limited EKG. The electrodes were placed in accordance with the International 10-20 system. REPORT: At the onset of the EEG the patient is asleep. The posterior dominant rhythm is not well seen during this recording. The background is symmetric and predominantly consist of 6-7 theta activity with intermixed delta activity. Stage II sleep is noted by sleep spindles. Photic stimulation does not illicit any abnormalities. IMPRESSION: This is a normal drowsy/sleep routine EEG. No focal slowing or epileptiform activity is seen. Repeat EEG when patient is more alert as outpatient may help better characterize awake background activity.
[2019-11-13] MEDS: levETIRAcetam 500 MG TAB PO SCH (20:27)
--- NOTE | 2019-11-13 22:43 | Electrocardiogram Report ---
Test Reason : Blood Pressure : / mmHG Vent. Rate : 084 BPM Atrial Rate : 084 BPM P-R Int : 138 ms QRS Dur : 086 ms QT Int : 362 ms P-R-T Axes : 062 044 057 degrees QTc Int : 427 ms Normal sinus rhythm Normal ECG When compared with ECG of 02-NOV-2019 06:21, No significant change was found Confirmed by Helio Jackson ([id number]) on 11/13/2019 10:43:25 PM Referred By: REFERRED SELF Confirmed By:Helio Jackson
[2019-11-14] MEDS: levETIRAcetam 500 MG TAB PO SCH (07:52)
[2019-11-14] MEDS: SODIUM CHLORIDE 0.9% 1000ML 1,000 ML IV SCH (09:37)
[2019-11-14] MEDS: ENOXAPARIN INJ 40 MG/0.4 ML SYR SQ SCH (16:05)
--- NOTE | 2019-11-14 16:25 | Hospitalist Progress Note ---
Date of Service November 14, 2019 Assessment & Plan (1) Seizure: admitted with new onset of Seizure like activity started on Keppra no further episode since admission EEG : This is a normal drowsy/sleep routine EEG. No focal slowing or epileptiform activity is seen. Repeat EEG when patient is more alert as outpatient may help better characterize awake background activity. MRI of brain no metastatic disease /normal study appreciate input from Neurology recommends to continue PO Keppra 500 mg BID pt will not drive for next 6 months -DMV form filled out out pt follow up with Neurlogy in 3 months (2) Mass of hilum: Recently found hilum mass on last admission CXR today: 1. Increased interstitial prominence in the right mid to lower lung slightly asymmetrically worse in comparison to the left. Developing infiltrate or asymmetric congestive change may be present. 2. Prominence of the right hilum persists correlating with the underlying right hilar mass. 3. Borderline cardiomegaly. -Last admission pt denied bronchoscopy. will need out patient follow up with Pulmonology pt is strongly counselled to quit smoking (3) Tobacco abuse: 0.5-1ppd smoker x 40 years -Smoking cessation encouraged -Denies nicotine patch DVT Prophylaxis -Lovenox SQ FULL CODE DISPOSITION : plan for discharge home tomorrow Admission and Anticipated Discharge Date Admission Date: November 13, 2019 Subjective no further episode of seizure like activity pt denies of any complain of headache , no visual changes no weakness or paresthesia Review of Systems Review of Systems: All systems reviewed & are unremarkable except as noted in HPI & below Neurologic: no tremor(s) and no confusion Physical Exam Constitutional: WD/WN, vitals as above + ill appearing Eyes: PERRL, conjunctivae normal, anicteric sclerae ENMT: external ear and nose normal, oropharynx normal Neck: trachea midline, no thyromegaly Respiratory: normal respiratory effort, lungs clear to auscultation Cardiovascular: RRR, no murmur, no edema Gastrointestinal (Abdomen): normal bowel sounds, soft, nontender, no hepatosplenomegaly Musculoskeletal: no cyanosis or clubbing, extremities motor strength 5/5 Skin: no rashes, warm and dry Neurologic: PERRL, EOMI, accommodation nl, no face palsy, no dysarthria Psychiatric: A+Ox3, euthymic affect Results & Data Results & Data ([facility]) Vital Signs (Past 12 Hours) Vital Signs Temp Pulse Resp BP BP Pulse Ox 11/14/19 15:46 36.6 C 74 18 155/72 H 92 11/14/19 11:57 37.2 C 63 18 157/83 H 97 11/14/19 08:00 36.7 C 80 18 154/74 H 93
--- NOTE | 2019-11-14 17:54 | Hospitalist Progress Note ---
Date of Service November 14, 2019 Assessment & Plan Admission and Anticipated Discharge Date Admission Date: November 13, 2019 Subjective CODE STROKE ALERT WAS CALLED : pt was found by nursing at 5: 33 pm , minimally responsive , staring at space with left sided flaccid paralysis no over seizure like activity urinary incontinence noted sent to stat CT head non contrast per Stroke alert protocol/will be transferred to ICU for tele stroke consult with [facility] neurology pt is seen by myself at approx 4 pm , was awake alert and oriented no focal deficit able to participate in treatment planning admitted with new onset Sz activity started on PO keppra 500 mg BID EEG showed no Sz like activity MRI brain ; no acute intracranial activity Meeta Bullard MD Results & Data Results & Data ([facility]) Vital Signs (Past 12 Hours) Vital Signs Temp Pulse Resp BP BP Pulse Ox 11/14/19 15:46 36.6 C 74 18 155/72 H 92 11/14/19 11:57 37.2 C 63 18 157/83 H 97 11/14/19 08:00 36.7 C 80 18 154/74 H 93
--- NOTE | 2019-11-14 18:03 | CT Scan Report ---
CT head/brain wo con CLINICAL HISTORY: Left-sided weakness. Suspected acute stroke. COMPARISON STUDY: 11/13/2019 TECHNIQUE: Axial CT of the brain is performed from the vertex to the skull base. IV contrast was not administered for this examination. A dose lowering technique was utilized adhering to the principles of ALARA. CT DOSE: 1390.87 mGy.cm FINDINGS: No intra or extra-axial mass lesions are visualized. There is no CT evidence of acute cortical infarc tion. There is no evidence of midline shift. There is no acute hemorrhage. No calvarial fractures ar e visualized. There are patchy white matter hypodensities likely on a small vessel basis. There is no evidence of pathologic ventricular dilatation. There is no evidence of acute sinusitis IMPRESSION: No acute intracranial findings ACT 112: Negative or not required by law. Electronically signed by: Jose Red M.D. 11/14/2019 6:01 PM
--- NOTE | 2019-11-14 18:38 | Hospitalist Progress Note ---
Date of Service November 14, 2019 Assessment & Plan Admission and Anticipated Discharge Date Admission Date: November 13, 2019 Subjective ATTENDING ADDENDUM : pt's left sided weakness completely resolved after CT scan able to follow commands , no weakness noted pt does not recall events for past few hours pt evaluated by Neuro stroke Dr Evelyn Magallon possible transient change in neuro status : breakthrough sz /post ictal -[place] Paralysis vs TIA no indication for tPA recommends to increase dose of Keppra further TIA /stroke work up : CTA of brain and neck /ECHO starting on antiplatelet Dr Deirdre Adkins Neurology updated : agrees with above : Keppra dose increased to 750 mg BID pt is started on Aspirin /Plavix Lipitor 10 mg daily , fasting lipid panel ordered for AM goal LDL < 70 resting ECHO allow permissive HTN keep SBP > 160 for cerebral perfusion treatment for only SBP > 190 /DBP > 100 pt will be monitored closely at PCU /Tele Pt;s Girlfriend Cele and Brother updated over phone Meeta Bullard MD Results & Data Results & Data ([facility]) Vital Signs (Past 12 Hours) Vital Signs Temp Pulse Resp BP BP Pulse Ox 11/14/19 15:46 36.6 C 74 18 155/72 H 92 11/14/19 11:57 37.2 C 63 18 157/83 H 97 11/14/19 08:00 36.7 C 80 18 154/74 H 93
[2019-11-14] MEDS ORDERED: ASPIRIN 81 MG ECTAB PO SCH (19:00)
[2019-11-14] MEDS ORDERED: levETIRAcetam 250 MG TAB PO ONE (19:00)
[2019-11-14] MEDS ORDERED: ATORVASTATIN 10 MG TAB PO SCH (19:00)
[2019-11-14] MEDS ORDERED: CLOPIDOGREL BISULFATE 75 MG TAB PO SCH (19:00)
[2019-11-14] MEDS ORDERED: levETIRAcetam 500 MG TAB PO SCH (21:00)
[2019-11-14] MEDS ORDERED: OPTIRAY 320 125ml IV PRN (23:19)
[2019-11-15] MEDS ORDERED: Heparin IV Standard *NO* Bolus IV SCH (01:17)
[2019-11-15] MEDS ORDERED: HEPARIN SODIUM/DEXTROSE 25,000 UNITS/500 ML BAG IV SCH (01:30)
--- NOTE | 2019-11-15 01:59 | Discharge Summary ---
Date of Service November 15, 2019 Admission HPI Per Admitting Provider Pt is 64 y/o M with PMH Tobacco use, newly discovered lung mass presents to ER with c/o seizure-like activity. Patient is poor historian. History obtained with assistance from patient's girlfriend, Cele whom which he lives. She reports on 11/19/2019 she had found patient lying on the kitchen floor and patient was stiff, had his eyes open but had noted moving sensation of mouth with spit coming from his mouth. He was not responding and she had noticed that he had loss of control of his urine. She reports when EMS came patient was snoring and patient was brought to hospital. Patient with recent hospitalization 10/31/2019-11/03/2019 which at that time was thought secondary possible syncopal episode and was found to have hilar mass. Was seen by pulmonology during that admission. Bronchoscopy was recommended however patient denied. He had MRI brain which was negative. Patient was discharged on Ceftin and doxycycline which he finished today. She states last night patient was lying on couch sleeping when she noticed he had his eyes open and was stiff and had strange movements of his mouth this lasted approximately 2 minutes. Patient states he was very groggy afterwards. States had another episode when patient was sleeping in bed around 11 PM yesterday which lasted approximately 10 seconds. This morning she heard a thump and went in bedroom to found patient laying on floor beside his bed and patient was stiff, had his eyes open had movements of his mouth with spit coming from his mouth and was not responding which also lasted approximately 2 minutes. She reports approximately 20 minutes later patient was very sleepy. She did note had loss of control of his bladder with this episode. EMS was called and patient was brought to hospital. Currently patient denying any complaint of headache, dizziness, extremity pain or paresthesias. He states he feels tired. Patient reports has had scaly rash to elbows and hands bilaterally that is itchy and sometimes has edema of wrist and patient reports has intermittent joint stiffness and aching. Patient does not follow with however he has self diagnosed himself with psoriasis. Patient denies any cough, shortness of breath, chest pain, fever, chills, diaphoresis, N/V/D/C, vision changes, neck pain, orthopnea, palpitations, sore throat, choking, otalgia, rhinorrhea, abdominal pain, paresthesias, weakness, extremity weakness, extremity edema, other rashes, urinary symptoms. Denies recent travel, ill contacts. Denies other OTC meds or supplements or herbal medicaitions. In ER it is reported that housekeeping walked by patient's room and thought that patient may have had seizure-like activity, by the time evaluated patient it is reported that he was sleepy. Patient was loaded with Keppra IV. Admission Exam Per Admitting Provider General: no distress, WDWN Head: normocephalic, atraumatic Eyes: PERRL, EOM's intact, conjunctiva non-injected, anicteric ENT: normal inspection external ears, nose, tongue without laceration, mucous membranes moist Neck: supple, trachea midline, non-tender Lungs: clear, no respiratory distress, no wheezing/rhonchi/rales CV: RRR, no murmur, no pretibial edema Abd: normal BS, soft, non-tender Ext: no cyanosis, no calf tenderness Neuro: Alert, oriented to month, year, president, location and self, no focal de ficits noted, normal affect Skin: warm, dry, +erythematous scaling plaques to dorsal hands and elbows with surrounding excoriations Principal Diagnosis Transferring to [place] Discharge Data Allergies Allergy/AdvReac Type Severity Reaction Status Date / Time No Known Allergies Allergy Unverified 11/13/19 08:12 Consultations 11/13/19 08:54 ED Decision to Admit Stat 11/13/19 13:18 Consult Case Management - Discharge Planning Routine Consult Neurology Routine Ordered Studies 11/13/19 07:59 CT head/brain wo con Stat 11/13/19 09:29 MR brain seizure wo/w con Stat 11/14/19 17:44 CT head/brain wo con Stat 11/14/19 18:47 CT angio head w con Stat 11/14/19 18:48 CT angio neck with con Stat Hospital Course (1) Intracranial embolism and thrombosis: CODE STROKE ALERT WAS CALLED : pt was found by nursing at 5: 33 pm , minimally responsive , staring at space with left sided flaccid paralysis no over seizure like activity urinary incontinence noted sent to stat CT head non contrast per Stroke alert protocol/will be transferred to ICU for tele stroke consult with [place] [facility] pt is seen by myself at approx 4 pm , was awake alert and oriented no focal deficit able to participate in treatment planning admitted with new onset Sz activity started on PO keppra 500 mg BID EEG showed no Sz like activity MRI brain ; no acute intracranial activity ATTENDING ADDENDUM : pt's left sided weakness completely resolved after CT scan able to follow commands , no weakness noted pt does not recall events for past few hours pt evaluated by Neuro stroke Dr Evelyn Magallon possible transient change in neuro status : breakthrough sz /post ictal -Todds Paralysis vs TIA no indication for tPA recommends to increase dose of Keppra further TIA /stroke work up : CTA of brain and neck /ECHO starting on antiplatelet Dr Deirdre Adkins Neurology updated : agrees with above : Keppra dose increased to 750 mg BID pt is started on Aspirin /Plavix Lipitor 10 mg daily , fasting lipid panel ordered for AM goal LDL < 70 resting ECHO allow permissive HTN keep SBP > 160 for cerebral perfusion treatment for only SBP > 190 /DBP > 100 pt will be monitored closely at PCU /Tele CTA head and Neck done and STAT reading was concerning for Right carotid terminus thrombus and 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 Called [place] Dr. Magallon and after discussing with interventional radiology was decided to start on iv heparin without bolus and transfer to [place] for possible intervention.. Patient is ok for transfer. Notified brother. Called girl friend but was not able to reach her. Currently patient is alert and oriented and neurologically intact. (2) Seizure: (1) Seizure: admitted with new onset of Seizure like activity started on Keppra no further episode since admission EEG : This is a normal drowsy/sleep routine EEG. No focal slowing or epileptiform activity is seen. Repeat EEG when patient is more alert as outpatient may help better characterize awake background activity. MRI of brain no metastatic disease /normal study appreciate input from Neurology recommends to continue PO Keppra 500 mg BID pt will not drive for next 6 months -DMV form filled out out pt follow up with Neurlogy in 3 months (2) Mass of hilum: Recently found hilum mass on last admission CXR today: 1. Increased interstitial prominence in the right mid to lower lung slightly asymmetrically worse in comparison to the left. Developing infiltrate or asymmetric congestive change may be present. 2. Prominence of the right hilum persists correlating with the underlying right hilar mass. 3. Borderline cardiomegaly. -Last admission pt denied bronchoscopy. 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 /possible malignancy tobacco abuse disorder Activity: As commented below Activity Comment: bed rest for now Non-emergency contact: Primary Care Provider Call non-emergency contact if: you have any medication questions Follow-up/Referrals: Ramu Lin MD [Physician] - (FOLLOW UP IN 3 MONTHS ) PT,DECLINED [Primary Care Provider] - Diet: Heart Healthy and Nothing by Mouth [place] Attending Provider Instructions: DO NOT DRIVE FOR 6 MONTHS , DMV NOTIFIED , YOUR LICENSE WILL BE SUSPENDED FOLLOW UP WITH NEUROLOGY IN 3 MONTHS FOLLOW UP PER MISAEL Tavarez Auto Body Repair Technician Provider Instructions: iv heparin weight based without bolus. Pending Studies at Discharge: No Stand-Alone Forms: My [facility], Smoking Cessation Medications and DC Order Prescriptions: New levetiracetam [Keppra] 500 mg Tablet 500 mg PO BID 30 Days Qty: 60 RF: 3 acetaminophen [Mapap (acetaminophen)] 325 mg Tablet 650 mg PO Q4H Qty: 5 RF: 0 atorvastatin 10 mg Tablet 10 mg PO HS Qty: 5 RF: 0 levetiracetam [Keppra] 500 mg Tablet 750 mg PO BID Qty: 5 RF: 0 clopidogrel 75 mg Tablet 75 mg PO DAILY Qty: 5 RF: 0 aspirin 81 mg Tablet,Delayed Release (Dr/Ec) 81 mg PO DAILY Qty: 5 RF: 0 Discharge Orders: Discharge Order (Routine); Ordered 11/15/19 Ordered By: Missael Munoz Admission Data Admit Date/Time: 11/13/19 09:28 Attending Provider: Meeta Bullard Admit Provider: Meeta Bullard Primary Care Provider: PT,DECLINED Other Providers: Meeta Bullard. ; Charlene Blum ; Ramu Lin ; Charlene Roe ; Farhat Gilmore.
[2019-11-15 02:03] LABS: INR 1.1 (0.9-1.1); Partial Thromboplastin Ratio 1.1; Partial Thromboplastin Time 30.2 Seconds (21.0-31.0); Prothrombin Time 11.4 Seconds (9.0-12.0)
[2019-11-15 02:11] LABS: Chol HDL Ratio 5; Cholesterol 162 mg/dl (0-200); HDL Cholesterol 31 mg/dl; LDL Cholesterol Calculated 105 mg/dl; Triglycerides 131 mg/dl (0-150); VLDL Cholesterol 26 mg/dl
--- NOTE | 2019-11-15 06:11 | CT Scan Report ---
CT angio head w con CLINICAL HISTORY: 64 years-old Male presenting with stroke like symptoms. TECHNIQUE: Multidetector CT angiography of the head was performed after the administration of intrave nous contrast. 3-D volumetric and/or maximum intensity projection (MIP) images were subsequently juanito nstructed for review. IV contrast: 119 mL of Optiray 320. One or more dose lowering techniques were u sed consistent with the principles of ALARA (as low as reasonably achievable), including automatic ex posure control, mA or kV adjustment to individual patient size, and/or use of iterative reconstructio n. COMPARISON: Noncontrast CT head performed earlier the same day. CT DOSE (mGy.cm): The estimated cumulative dose is 602.58 mGy.cm. FINDINGS: Team Assembly Line Machine Operator topogram: Unremarkable. Anterior circulation: Atherosclerosis of the bilateral internal carotid arteries. There is significan t narrowing of the lumen of the distal right internal carotid artery in the cervical region relative to the left. This narrow caliber (50-75% stenosis relative to the left) continues throughout the el ous segment to the level of the paraclinoid segment. Occlusion of the right ICA beyond the ophthalmic artery origin and length of approximately 1.2 cm. Left ICA patent though some atherosclerosis is not ed in the cavernous segment. Anterior cerebral arteries patent. Middle cerebral arteries patent. Ante rior communicating artery patent. Posterior circulation: Codominant vertebral arteries. Intradural portions of the vertebral arteries p atent. Posterior inferior cerebellar arteries patent. Basilar artery patent. Anterior inferior cerebe llar arteries poorly visualized. Superior cerebellar arteries patent. Posterior cerebral arteries pat ent. Right posterior communicating artery (P-comm) patent. Left P-comm hypoplastic or aplastic. Dural venous sinuses: Patent. Other: Allowing for the phase of contrast, brain parenchyma within normal limits. Calvarium intact. IMPRESSION: 1. Focal occlusion of the right ICA beyond the ophthalmic artery origin to the level of the terminus . Patent right middle and anterior cerebral arteries beyond this level presumably from adequate colla teral flow. 2. Diffusely narrow caliber of the distal right ICA in the cervical course and throughout the intrac ranial course to the level of the paraclinoid segment resulting in approximately 50-75% stenosis rela tive to the left. Dissection may have this appearance or less likely diffuse atherosclerosis. It woul d be unusual for this degree of asymmetry between the caliber of the internal carotid arteries to be congenital/developmental. Preliminary findings were discussed with Dr. Munoz by Dr. Jimenez on 11/15/2019 0:44 AM. ACT 112: Negative or not required by law. Electronically signed by: Yadiel Alvarenga M.D. 11/15/2019 6:10 AM
--- NOTE | 2019-11-15 06:19 | CT Scan Report ---
CT angio neck with con CLINICAL HISTORY: 64 years-old Male presenting with stroke like symptoms. TECHNIQUE: Multidetector CT angiography of the neck was performed after the administration of intrave nous contrast. 3-D volumetric and/or maximum intensity projection (MIP) images were subsequently juanito nstructed for review. IV contrast: 119 mL of Optiray 320. One or more dose lowering techniques were u sed consistent with the principles of ALARA (as low as reasonably achievable), including automatic ex posure control, mA or kV adjustment to individual patient size, and/or use of iterative reconstructio n. Stenosis measurements were based on NASCET-like criteria (distal lumen diameter as the denominator for stenosis measurement). COMPARISON: None. CT DOSE (mGy.cm): The estimated cumulative dose is 602.58. FINDINGS: Distribution Driver topogram: Unremarkable. Aortic arch: Aortic arch not included within the [id number]. Innominate artery: Patent. Right subclavian artery: Patent. Right common carotid artery: Patent. Right internal and external carotid arteries: Calcified and noncalcified atherosclerotic plaque at th e carotid bifurcation with less than 25% stenosis of the origin of the internal carotid artery. Trans ition to a diffusely narrow caliber (less than 2 mm in comparison to 5 mm on the left; 50-75% stenosi s) just beyond the proximal course, where the mid to distal right ICA remains narrow caliber to the s kull base and beyond. There is no gross evidence of a surrounding vessel to definitively suggest diss ection. External carotid artery patent. Left common carotid artery: Patent. Left internal and external carotid arteries: Mild calcified and noncalcified atherosclerotic plaque a t the bifurcation without significant stenosis of the origins of the internal or external carotid art eries, which remain widely patent. Left subclavian artery: Patent. Vertebral arteries: Codominant vertebral arteries. Origins and courses of the bilateral vertebral art eries patent. Other: Atherosclerosis of the cavernous segments of the carotid arteries. Diffusely narrow caliber of the right ICA and the visualized portion. Pathologically enlarged lymph node in the right paratrache al region measuring 1.5 cm in short axis. Additional partially visualized mediastinal lymphadenopathy suspected. Degenerative changes of the cervical spine. Lung apices clear. IMPRESSION: 1. Superior mediastinal lymphadenopathy. This is concerning for lymphoproliferative disease/lymphoma or metastatic disease. Further evaluation with chest CT is recommended as well as correlation for an underlying known malignancy. 2. Diffusely narrow caliber of the right ICA throughout the majority of its course and into the intr acranial portion. The appearance raises concern for dissection though there is no demonstrable surrou nding vessel to definitively suggest this diagnosis. Differential considerations include vasculitis, developmental variation, or less likely diffuse atherosclerosis. The report will be called/faxed according to standard departmental protocol. ACT 112: Negative or not required by law. Electronically signed by: Yadiel Alvarenga M.D. 11/15/2019 6:17 AM
== END 2019-11-15 02:35 | disposition short-term general hospital (02) | DRG 101 ==
LOC: ED 07:26 → 2N 09:28 → 2S 11-14 18:38